=== PATIENT | male | born 1945 | race Caucasian/White ===

== ENCOUNTER 2016-09-20 09:50 | Inpatient (IN) | payer MEDICARE, BC, OTHER ==
[2016-09-20] VITALS (51 sets, daily range): BP systolic 68–199; BP diastolic 35–82; PULSE 76–114; RESP 4–40; TEMP 97.8–99.3; O2SAT 88–99
[~2016-09-20] VITALS: Ht 162.6 cm; Wt 94.8 kg
[2016-09-20] MEDS ORDERED: ACTO15TA11 PO (10:09)
[2016-09-20] MEDS ORDERED: VYTO10TA27 PO (10:09)
[2016-09-20] MEDS ORDERED: GLYB5TAB3 PO (10:09)
[2016-09-20] MEDS ORDERED: [UNRECOGNIZED DRUG - REMARK] (10:09)
[2016-09-20] MEDS ORDERED: SODIUM CHLORIDE 0.9% FLUSH 5 ML FLUSH IVF PRN (10:15)
--- NOTE | 2016-09-20 10:15 | PD ---
HPI Chief Complaint: Chest Pain Time Seen by Provider: 09:54 Travel History International Travel<30 days: No (unknown) Contact w/Intl Traveler<30days: No (unknown) History of Present Illness HPI 70yo M with PMH of IDDM presents to the ED with c/o sob and productive cough for 2 days. Pt had tactile fever at home. Associated with right sided chest pain for 2 days that is constant, dull, nonradiating and better sitting up. 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 Had nonbloody loose stool since last night. Denies any cig smoking or history of COPD. Pt does not use oxygen at home. Denies any history of PE, DVT, n/v, abdominal pain , focal weakness or numbness. PFSH Past Medical History Diabetes: Yes Patient Takes Glucophage: No Musculoskeletal: Yes (BACK PAIN CHRONIC) Tetanus Vaccination: Unknown Influenza Vaccination: Yes Social History Alcohol Use: No Tobacco Use: No Substance Use: No Allergies-Medications (Allergen,Severity, Reaction): Coded Allergies: No Known Allergies (Unverified , 09/20/16) Reported Meds & Prescriptions Reported Meds & Active Scripts Active Reported Levemir Flextouch Pen Inj (Insulin Detemir) 300 unit/3 ML Pen 1 Units SQ DIRECTED Vytorin (Ezetimibe-Simvastatin) 10-40 Mg Tab 1 Tab PO HS Januvia (Sitagliptin Phosphate) 100 Mg Tab 100 Mg PO DAILY Glimepiride 4 Mg Tab 4 Mg PO BIDAC Ramipril 10 Mg Cap 10 Mg PO DAILY [Tiolitazone] 15 Mg PO DAILY Ferrous Sulfate 325 Mg Tab 325 Mg PO DAILY Review of Systems Except as stated in HPI: all other systems reviewed are Neg Physical Exam Narrative GENERAL: 70yo M in moderate distress. SKIN: Warm and dry. HEAD: Atraumatic. Normocephalic. EYES: Pupils equal and round. No scleral icterus. No injection or drainage. ENT: No nasal bleeding or discharge. Mucous membranes pink and moist. NECK: Trachea midline. No JVD. CARDIOVASCULAR: Regular rate and rhythm. No murmur appreciated. RESPIRATORY: + accessory muscle use. Coarse breath sounds bilaterally. GASTROINTESTINAL: Abdomen soft, Nontender to palpation. No rebound tenderness or guarding. MUSCULOSKELETAL: No obvious deformities. No clubbing. No cyanosis. +Trace bilateral lower extremity edema. No calf ttp. NEUROLOGICAL: Awake and alert. No obvious cranial nerve deficits. Motor grossly within normal limits. Normal speech. PSYCHIATRIC: Appropriate mood and affect; insight and judgment normal. Data Data Last Documented VS Vital Signs Date Time Temp Pulse Resp B/P Pulse Ox O2 Delivery O2 Flow Rate FiO2 09/20/16 12:00 94 40 09/20/16 11:58 101 30 127/67 Nasal Cannula 4 09/20/16 10:10 97.8 Orders Complete Blood Count With Diff (09/20/16 10:05) Basic Metabolic Panel (Bmp) (09/20/16 10:05) B-Type Natriuretic Peptide (09/20/16 10:05) Act Partial Throm Time (Ptt) (09/20/16 10:05) Prothrombin Time / Inr (Pt) (09/20/16 10:05) Magnesium (Mg) (09/20/16 10:05) Ckmb (Isoenzyme) Profile (09/20/16 10:05) Troponin I (09/20/16 10:05) Arterial Blood Gas (Abg) (09/20/16 10:05) Influenzae A/B Antigen (09/20/16 10:05) Blood Culture (09/20/16 10:05) Iv Access Insert/Monitor (09/20/16 10:05) Ecg Monitoring (09/20/16 10:05) Oximetry (09/20/16 10:05) Oxygen Administration (09/20/16 10:05) Chest, Single Ap (09/20/16 10:05) Sodium Chloride 0.9% Flush (Ns Flush) (09/20/16 10:15) Lactic Acid Sepsis Protocol (09/20/16 10:05) CKMB (09/20/16 09:55) CKMB% (09/20/16 09:55) Sodium Chlor 0.9% 1000 Ml Inj (Ns 1000 M (09/20/16 11:00) Sodium Chlor 0.9% 1000 Ml Inj (Ns 1000 M (09/20/16 11:00) Ceftriaxone Inj (Rocephin Inj) (09/20/16 11:00) Azithromycin Inj (Zithromax Inj) (09/20/16 11:00) Sodium Chlor 0.9% 1000 Ml Inj (Ns 1000 M (09/20/16 11:00) Resp Bipap / Cpap Non Invas Vt (09/20/16 11:31) (Hub Use Only)Inp Phy Cons/Ref (09/20/16 ) Admit Order (Ed Use Only) (09/20/16 11:52) Labs Laboratory Tests Test 09/20/16 09/20/16 09/20/16 09:55 10:15 10:28 White Blood Count 8.6 TH/MM3 Red Blood Count 3.72 MIL/MM3 Hemoglobin 12.0 GM/DL Hematocrit 36.1 % Mean Corpuscular Volume 97.1 FL Mean Corpuscular Hemoglobin 32.2 PG Mean Corpuscular Hemoglobin 33.1 % Concent Red Cell Distribution Width 13.4 % Platelet Count 91 TH/MM3 Mean Platelet Volume 9.6 FL Neutrophils (%) (Auto) % Lymphocytes (%) (Auto) % Monocytes (%) (Auto) % Eosinophils (%) (Auto) % Basophils (%) (Auto) % Neutrophils # (Auto) TH/MM3 Lymphocytes # (Auto) TH/MM3 Monocytes # (Auto) TH/MM3 Eosinophils # (Auto) TH/MM3 Basophils # (Auto) TH/MM3 CBC Comment AUTO DIFF Differential Total Cells 100 Counted Neutrophils % (Manual) 39 % Band Neutrophils % 27 % Lymphocytes % 6 % Monocytes % 21 % Neutrophils # (Manual) 6.3 TH/MM3 Metamyelocytes 6 % Myelocytes 1 % Differential Comment FINAL DIFF MANUAL Dohle Bodies PRESENT Platelet Estimate LOW Platelet Morphology Comment NORMAL Red Cell Morphology Comment NORMAL Prothrombin Time 15.1 SEC Prothromb Time International 1.3 RATIO Ratio Activated Partial 35.7 SEC Thromboplast Time Sodium Level 143 MEQ/L Potassium Level 3.8 MEQ/L Chloride Level 104 MEQ/L Carbon Dioxide Level 22.0 MEQ/L Anion Gap 17 MEQ/L Blood Urea Nitrogen 52 MG/DL Creatinine 2.90 MG/DL Estimat Glomerular Filtration 21 ML/MIN Rate Random Glucose 153 MG/DL Calcium Level 8.8 MG/DL Magnesium Level 2.1 MG/DL Total Creatine Kinase 2385 U/L Creatine Kinase MB 4.5 NG/ML Creatine Kinase MB % 0.2 % Troponin I 0.11 NG/ML B-Type Natriuretic Peptide 187 PG/ML Lactic Acid Level 5.4 mmol/L Blood Gas Puncture Site LT RADIAL Blood Gas Patient Temperature 98.6 Blood Gas HCO3 21 mmol/L Blood Gas Base Excess -3.2 mmol/L Blood Gas Oxygen Saturation 85 % Arterial Blood pH 7.40 Arterial Blood Partial 34 mmHG Pressure CO2 Arterial Blood Partial 56 mmHG Pressure O2 Arterial Blood Oxygen Content 13.9 Vol % Arterial Blood 2.1 % Carboxyhemoglobin Arterial Blood Methemoglobin 1.1 % Blood Gas Hemoglobin 11.6 G/DL Oxygen Delivery Device NONE Blood Gas Inspired Oxygen 21 % MDM Medical Decision Making Medical Screen Exam Complete: Yes Emergency Medical Condition: Yes Interpretation(s) EKG: Sinus tachycardia at 100bpm. LAD. No ST segment elevation or depression. Differential Diagnosis Pneumonia vs. Bronchitis vs. Influenza vs. CHF vs. COPD (although not a smoker and no history) vs. ACS vs. PE Narrative Course 70yo M with sob, productive cough and right sided pleuritic chest pain for 2 days. Pt is hypoxic at 88% on RA and goes up to 94% on 4L NC. Will obtain labs , CXR, and reevaluate. Pt states he uses CPAP at home for sleep apnea so place pt on BIPAP and will continue to evaluate. Pt is doing better on BIPAP, saturating at 94-95%. Pt is still tachypneic breathing in the 30s. Pt is afebrile here but heart rate is 99bpm. Labs reviewed, no leukocytosis but with bandemia of 27%. Lactic acid is 5.4. CPK is 2385. Creatinine is 2.90 so pt likely have VICKI secondary to severe sepsis. Elevated troponin of 0.11 likely secondary to severe sepsis. BNP 187. Glucose is 153. O2 sat 85% on RA on ABG. CXR showed consolidative opacity in the right midlung most characteristic of pneumonia. Milder streaky opacity in the left perihilar region and left lung base. Pt given IVF NS x3 and ceftriaxone and azithromycin. Pt has not been hospitalized in last 3 months. Pt is doing better on BIPAP and will repeat ABG and continue to monitor. Discussed with Dr. Washington (ICU attending) who would like patient to be admitted to ICU in [place]. He also recommended CT chest without contrast to evaluate the infiltrate better. CT chest shows large areas of consolidation in both lungs. Repeat ABG on BIPAP shows improved O2 sat at 90%, will increase Fi O2 from 40% to 50%. PCO2 is 35 still. Pt is saturating at 95% on BIPAP. I informed pt of the results and pt currently does not want to be intubated and wants to try BIPAP first. I suggested preventively intubating the patient but pt is adamant about not being intubated until absolutely necessary. Pt has good mental status and states he is not getting tired from breathing. Pt is clinically improved on BIPAP. I informed both pt and daughter that if he starts to get tire or if PCO2 increases, then we will have to intubate him. They are aware of this and agrees to intubation if it is absolutely necessary. I also informed the next ED physician of this. Critical Care Narrative Aggregate critical care time was 50 minutes. Time to perform other separately billable procedures was not included in the critical care time. My time did not include minutes spent treating any other patients simultaneously or on activities that did not directly contribute to the patient's treatment. The services I provided to this patient were to treat and/or prevent clinically significant deterioration that could result in: cardiovascular collapse or . I provided critical care services requiring my management, as noted below: Chart data review, documentation time, medication orders and management, vital sign assessments/reviewing monitor data, ordering and reviewing lab tests, ordering and interpreting/reviewing x-rays and diagnostic studies, care of the patient and discussion of the patient with the admitting physicians. Sepsis Criteria SIRS Criteria (2 or more): Heart rate over 90, RR > 20 or PaCO2 < 32, WBC > 11131, < 4000 or > 10% bands Sepsis Criteria (SIRS+source): Infect source susp/known Severe Sepsis (+one): Lactate >2, Acute Oliguria/Renal Failure Septic Shock Criteria: Lactic acid >=4 Diagnosis Primary Impression: Severe sepsis Admitting Information Admitting Physician Requests: Afshan Jorge DO Sep 20, 2016 10:15
[2016-09-20 10:21] LABS: HEMATOCRIT 36.1 % (39.0-51.0); MEAN CELL VOLUME 97.1 FL (80.0-100.0); MEAN CORPUSCULAR HEMOGLOBIN 32.2 PG (27.0-34.0); MEAN CORPUSCULAR HGB CONC 33.1 % (32.0-36.0); PLATELET COUNT 91 TH/MM3 (150-450); RED BLOOD COUNT 3.72 MIL/MM3 (4.50-5.90); RED CELL DISTRIBUTION WIDTH 13.4 % (11.6-17.2); WHITE BLOOD COUNT 8.6 TH/MM3 (4.0-11.0)
[2016-09-20 10:26] LABS: HEMO FLAGS AUTO DIFF
[2016-09-20 10:27] LABS: POTASSIUM 3.8 MEQ/L (3.5-5.1)
[2016-09-20 10:30] LABS: MAGNESIUM 2.1 MG/DL (1.5-2.5)
[2016-09-20 10:31] LABS: APTT (PATIENT) 35.7 SEC (24.3-30.1); INTERNATIONAL NORMALIZED RATIO 1.3 RATIO; PROTHROMBIN TIME - PATIENT 15.1 SEC (9.8-11.6)
[2016-09-20 10:36] LABS: BLOOD GAS BASE EXCESS -3.2 mmol/L (-2-2); BLOOD GAS CARBOXYHEMOGLOBIN 2.1 % (0-4); BLOOD GAS HCO3 21 mmol/L (22-26); BLOOD GAS METHEMOGLOBIN 1.1 % (0-2); BLOOD GAS O2 HGB SATURATION 85 % (90-100); BLOOD GAS OXYGEN CONTENT 13.9 Vol % (12.0-20.0); BLOOD GAS PCO2 34 mmHG (38-42); BLOOD GAS PO2 56 mmHG (61-120); BLOOD GAS TOTAL HGB 11.6 G/DL (12.0-16.0); TEMP CORR TO 98.6
[2016-09-20 10:37] LABS: CRITICAL VALUE YES; DRAW SITE LT RADIAL; FIO2 21 %; NUMBER OF ARTERIAL PUNCTURES 1; STAT YES; ULNAR PULSE PRESENT
[2016-09-20 10:45] LABS: BANDS 27 % (0-6); DOHLE BODIES PRESENT (NONE SEEN); METAMYELOCYTES 6 % (0-1); MYELOCYTES 1 % (0-0); NEUTROPHIL # MANUAL DIFF 6.3 TH/MM3 (1.8-7.7); PLATELET ESTIMATE SMEAR LOW (NORMAL); PLATELET MORPHOLOGY NORMAL (NORMAL); POLYS (SEG NEUTROPHILS) 39 % (16-70); SCAN/DIFF FINAL DIFF MANUAL; WBC DIFF SAMPLE 100
--- NOTE | 2016-09-20 10:49 | RADHPO ---
EXAM DATE/TIME: 09/20/2016 10:14 [facility] COMPARISON: No previous studies available for comparison. INDICATIONS : Chest Pain, Short of Breath. MEDICAL HISTORY : None. SURGICAL HISTORY : None. ENCOUNTER: Initial ACUITY: 2 days PAIN SCORE: 7/10 LOCATION: Bilateral chest FINDINGS: A single AP erect portable view of the chest was obtained and demonstrates consolidative opacity in t he right perihilar region extending out to the pleural surface. There is more streaky infiltrate in t he left perihilar region and left lung base. The heart size appears mildly prominent. There is no dis tinct effusion. Overlying electrical leads are present. The patient is status post lower cervical fus ion with screw-plate fixation device. A stimulator lead device is projected over the mid thoracic spi ne. CONCLUSION: 1. Consolidative opacity in the right midlung most characteristic of pneumonia. 2. Milder streaky opacity in the left perihilar region and left lung base. Osmel Chung MD on September 20, 2016 at 10:45 Board Certified Radiologist. This report was verified electronically.
[2016-09-20 11:00] LABS: CKMB 4.5 NG/ML (0.5-3.6)
[2016-09-20] MEDS ORDERED: AZITHROMYCIN INJ 500 MG in SODIUM CHLOR 0.9% 250 ML INJ 250 ML IV ONE (11:00)
[2016-09-20] MEDS ORDERED: cefTRIAXone INJ 1,000 MG in SODIUM CHLORIDE 0.9% INJ 100 ML IV ONE (11:00)
[2016-09-20] MEDS ORDERED: SODIUM CHLOR 0.9% 1000 ML INJ 1,000 ML IV ONE ×4 (11:00→19:00)
[2016-09-20] MEDS ORDERED: [UNRECOGNIZED DRUG - OTHER] PO (11:13)
[2016-09-20] MEDS ORDERED: VYTO10TA9 PO (11:13)
[2016-09-20] MEDS ORDERED: FERR325T PO (11:13)
[2016-09-20] MEDS ORDERED: GLIM4TAB PO (11:13)
[2016-09-20] MEDS ORDERED: SITA1TAB2 PO (11:13)
[2016-09-20] MEDS ORDERED: RAMI10CA PO (11:13)
[2016-09-20] MEDS ORDERED: INSU1INJ5 SQ (11:46)
[2016-09-20 12:23] LABS: LACTIC ACID GHOST NOT REPORTABLE
--- NOTE | 2016-09-20 12:34 | RADHPO ---
EXAM DATE/TIME: 09/20/2016 12:18 [facility] COMPARISON: CHEST SINGLE AP, September 20, 2016, 10:14. INDICATIONS : Short of breath with right sided chest pain. RADIATION DOSE: 22.50 CTDIvol (mGy) MEDICAL HISTORY : diabetes SURGICAL HISTORY : None. ENCOUNTER: Initial ACUITY: 3 days PAIN SCALE: 6/10 LOCATION: Right chest TECHNIQUE: Volumetric scanning of the chest was performed. Using automated exposure control and adjustment of t he mA and/or kV according to patient size, radiation dose was kept as low as reasonably achievable to obtain optimal diagnostic quality images. FINDINGS: LUNGS: There is dense consolidation in the right upper lobe the perihilar region their bronchograms. There i s also dense consolidation in the posterior left lower lobe and left upper lobe. PLEURAE: There is no pleural thickening or pleural effusion. MEDIASTINUM: The heart and great vessels demonstrate no acute abnormality. There is no mediastinal or hilar lymph adenopathy. The heart size is mildly enlarged with no pericardial effusion. An aberrant right subclav mayco artery is noted. AXILLAE: Within normal limits. No lymphadenopathy. MUSCULOSKELETAL: Within normal limits for patient age. MISCELLANEOUS: The visualized upper abdominal organs demonstrate no acute abnormality. A stimulator lead is noted in the thecal sac of the thoracic spine. CONCLUSION: 1. Large areas of dense consolidation most characteristic of pneumonia. 2. Mild cardiomegaly. Osmel Chung MD on September 20, 2016 at 12:30 Board Certified Radiologist. This report was verified electronically.
[2016-09-20] MEDS ORDERED: SODIUM CHLORIDE 0.9% FLUSH 5 ML FLUSH IV FLUSH PRN (12:45)
[2016-09-20] MEDS ORDERED: GLUCAGON 1 MG/ML VIAL OTHER PRN (12:45)
[2016-09-20] MEDS ORDERED: MAGNESIUM HYDROXIDE SUSP 30 ML CUP PO PRN (12:45)
[2016-09-20] MEDS ORDERED: POTASSIUM PHOSPHATE MONOBASIC 500 MG TAB PO/TUBE PRN (12:45)
[2016-09-20] MEDS ORDERED: MAGNESIUM OXIDE 400 MG TAB PO PRN (12:45)
[2016-09-20] MEDS ORDERED: MAGNESIUM SULFATE INJ 4 GM in SODIUM CHLORIDE 0.9% INJ 92 ML IV PRN (12:45)
[2016-09-20] MEDS ORDERED: POTASSIUM PHOSPHATE INJ 30 MMOL in SODIUM CHLOR 0.9% 250 ML INJ 250 ML IV PRN (12:45)
[2016-09-20] MEDS ORDERED: SODIUM PHOSPHATE INJ 30 MMOL in SODIUM CHLOR 0.9% 250 ML INJ 240 ML IV PRN (12:45)
[2016-09-20] MEDS ORDERED: MISCELLANEOUS NURSING INFORMATION XX SCH (12:45)
[2016-09-20] MEDS ORDERED: MAGNESIUM SULFATE INJ 2 GM in SODIUM CHLORIDE 0.9% INJ 96 ML IV PRN (12:45)
[2016-09-20] MEDS ORDERED: ACETAMINOPHEN 325 MG TAB PO PRN (12:45)
[2016-09-20] MEDS ORDERED: POTASSIUM PHOSPHATE MONOBASIC 500 MG TAB PO PRN (12:45)
[2016-09-20] MEDS ORDERED: DEXTROSE 50% IN WATER 50 ML VIAL(D50) IV PUSH PRN (12:45)
[2016-09-20] MEDS ORDERED: CHLORHEXIDINE GLUCONATE 2 % 1 PACK (2 CLOTHS) TOP PRN (12:45)
[2016-09-20] MEDS ORDERED: POTASSIUM CL 40 MEQ/30 ML LIQ UDC PO/TUBE PRN ×2 (12:45)
[2016-09-20] MEDS ORDERED: POTASSIUM CHLOR 40 MEQ PREMIX 100 ML IV PRN ×2 (12:45)
[2016-09-20] MEDS ORDERED: ONDANSETRON HCL 4 MG/2 ML VIAL IV PRN (12:45)
[2016-09-20] MEDS ORDERED: POTASSIUM CHLOR 20 MEQ PREMIX 100 ML IV PRN ×2 (12:45)
[2016-09-20] MEDS ORDERED: HEPARIN SODIUM - SQ 10,000 UNITS/ML VIAL SQ SCH (13:00)
[2016-09-20] MEDS ORDERED: PIPERACIL-TAZO 3.375 GM PREMIX 50 ML IV SCH (13:00)
[2016-09-20 13:30] LABS: BLOOD GAS CARBOXYHEMOGLOBIN 1.8 % (0-4); BLOOD GAS HCO3 19 mmol/L (22-26); BLOOD GAS METHEMOGLOBIN 1.1 % (0-2); BLOOD GAS O2 HGB SATURATION 90 % (90-100); BLOOD GAS OXYGEN CONTENT 14.4 Vol % (12.0-20.0); BLOOD GAS PCO2 35 mmHG (38-42); BLOOD GAS PO2 67 mmHG (61-120); BLOOD GAS TOTAL HGB 11.4 G/DL (12.0-16.0); CRITICAL VALUE NO; OXYGEN DEVICE BIPAP; TEMP CORR TO 98.6; VENT SETTINGS EPAP 5/IPAP15
[2016-09-20 13:31] LABS: DRAW SITE LT RADIAL; FIO2 40 %; NUMBER OF ARTERIAL PUNCTURES 1; STAT NO; ULNAR PULSE PRESENT
[2016-09-20 13:41] LABS: CHLORIDE 108 MEQ/L (98-107); POTASSIUM 3.9 MEQ/L (3.5-5.1); SODIUM (NA) 145 MEQ/L (136-145)
[2016-09-20 13:52] LABS: ALKALINE PHOSPHATASE 27 U/L (45-117); ALT (GPT) 45 U/L (12-78); ANION GAP 14 MEQ/L (5-15); AST (GOT) 93 U/L (15-37); BICARBONATE 23.3 MEQ/L (21.0-32.0); BLOOD UREA NITROGEN 52 MG/DL (7-18); GLOMERULAR FILTRATION RATE 26 ML/MIN (>89); TOTAL BILIRUBIN ADULT 1.2 MG/DL (0.2-1.0)
[2016-09-20] MEDS: RESP: ALBUTEROL 2.5 MG/IPRATROPIUM 0.5 MG NEB (SCH) INH ×3 (15:32→23:06)
[2016-09-20] MEDS ORDERED: ALPRAZolam 0.25 MG TAB PO PRN (15:45)
--- NOTE | 2016-09-20 16:21 | HHI.HP ---
[facility] Service Critical Care Medicine Primary Care Physician Non-Staff Admission Diagnosis Severe sepsis secondary to bilateral pneumonia Diagnosis: (1) Sepsis with multi-organ dysfunction Diagnosis: Principal (2) Septic shock Diagnosis: Principal (3) Adult respiratory distress syndrome Diagnosis: Principal (4) Acute respiratory failure with hypoxia Diagnosis: Principal (5) Bilateral pneumonia Diagnosis: Principal (6) Hypotension Diagnosis: Principal (7) Lactic acid acidosis Diagnosis: Principal (8) Non-ST elevated myocardial infarction Diagnosis: Principal (9) Elevated CPK Diagnosis: Principal (10) Troponin level elevated Diagnosis: Principal (11) Acute renal failure Diagnosis: Principal (12) Diabetes Diagnosis: Secondary (13) Hyperlipidemia Diagnosis: Secondary Chief Complaint: Shortness of breath and dyspnea Travel History International Travel<30 Days: No Contact w/Intl Traveler <30 Da: No Traveled to Known Affected Are: No Sepsis Criteria SIRS Criteria (2 or more): Heart rate over 90, RR > 20 or PaCO2 < 32 Sepsis Criteria (SIRS+source): Infect source susp/known Severe Sepsis (+one): Hypotension, Lactate >2 Septic Shock Criteria: Lactic acid >=4 Multiple Organ Dysfunction Syn: Evidence -2 organs failing Criteria Outcome: Meets septic shock criteria, Meets multiple organ dys. criteria History of Present Illness 70 year-old male with known history of hypertension, hyperlipidemia, diabetes who presented to the emergency department because of shortness of breath and dyspnea. Patient has had a rather plethora symptoms that started back starting last . At that time the patient did have some fever, chills and did not feel well. They're planning on coming down from [place]. Him and his did get in the car and drive down here from [place] on Wednesday morning. Wednesday afternoon and evening the patient did not feel well again. He had some diaphoresis, nausea and vomiting Wednesday night. They proceeded to continue to drive to [place] and they got here yesterday. Patient was still not feeling well. Had fever, cough, chills. This morning patient had significant shortness of breath, dyspnea, lethargy so they came to the hospital for evaluation. Upon presentation appears if the patient was in severe septic shock with multiorgan dysfunction in the emergency department patient was given 2 L of fluid bolus to maintain blood pressure. He does have respiratory failure with significant hypoxia. Patient was advanced on oxygenation to now he is on BiPAP for respiratory support. It was indicated by the ER physician that they recommended him to be intubated, however he preferred not to be intubated at that time. Laboratory studies to indicate significant lactic acid acidosis, acute renal failure, severe bandemia, elevated cardiac enzymes. ER physician did contact critical care physician recommended admission. ER physician to pursue a CT scan after she obtained admission status. It does show significant pneumonia bilaterally. Mainly right middle lobe. It appears to be very dense consolidation. Upon evaluating the patient personally, patient is still rather tachypneic and respiratory rate 35-40. Tidal volume on BiPAP was anywhere from 300-450. I notify him of how sick he is. That he would probably benefit from oral intubation. Patient is open to it at this time to be proactive rather than reactive. Review of Systems Constitutional: COMPLAINS OF: Dizziness, DENIES: Diaphoretic episodes, Fatigue , Fever, Weight gain, Weight loss, Chills, Change in appetite, Night Sweats Eyes: DENIES: Blurred vision, Diplopia, Eye inflammation, Eye pain, Vision loss , Double Vision Ears, nose, mouth, throat: DENIES: Vertigo, Nasal discharge, Throat pain, Ear Pain, Running Nose, Sinus Pain Respiratory: COMPLAINS OF: Shortness of breath, DENIES: Apneas, Cough, Snoring , Wheezing, Hemoptysis, Sputum production Cardiovascular: DENIES: Chest pain, Palpitations, Syncope, Dyspnea on Exertion , Lower Extremity Edema, Orthopnea Gastrointestinal: COMPLAINS OF: Nausea, Vomiting, DENIES: Abdominal pain, Black stools, Bloody stools, Constipation, Diarrhea, Difficulty Swallowing, Anorexia Neurologic: DENIES: Abnormal gait, Headache, Localized weakness, Paresthesias, Seizures, Speech Problems, Tremor, Poor Balance Psychiatric: DENIES: Anxiety, Confusion, Mood changes Past Family Social History Allergies: Coded Allergies: No Known Allergies (Unverified , 09/20/16) Past Medical History Hypertension Hyperlipidemia Chronic back pain Diabetes Past Surgical History Pain stimulator implantation Reported Medications Reported Meds & Active Scripts Active Reported Levemir Flextouch Pen Inj (Insulin Detemir) 300 unit/3 ML Pen 1 Units SQ DIRECTED Vytorin (Ezetimibe-Simvastatin) 10-40 Mg Tab 1 Tab PO HS Januvia (Sitagliptin Phosphate) 100 Mg Tab 100 Mg PO DAILY Glimepiride 4 Mg Tab 4 Mg PO BIDAC Ramipril 10 Mg Cap 10 Mg PO DAILY [Tiolitazone] 15 Mg PO DAILY Ferrous Sulfate 325 Mg Tab 325 Mg PO DAILY Family History Reviewed and unremarkable Social History Patient denies any tobacco, alcohol or illicit drugs Physical Exam Vital Signs Vital Signs Date Time Temp Pulse Resp B/P Pulse Ox O2 Delivery O2 Flow Rate FiO2 09/20/16 13:58 94 136/55 95 BiPAP 09/20/16 13:39 95 55 09/20/16 13:31 97 32 117/54 93 BiPAP 40 09/20/16 12:59 BiPAP 40 09/20/16 12:59 92 25 110/58 93 BiPAP 40 09/20/16 12:11 96 32 127/67 95 BiPAP 40 09/20/16 12:00 94 40 09/20/16 11:58 101 30 127/67 91 Nasal Cannula 4 09/20/16 11:44 93 Nasal Cannula 4 09/20/16 11:44 94 30 93 Nasal Cannula 4 09/20/16 11:43 93 Nasal Cannula 4.00 09/20/16 11:17 89 27 106/56 95 BiPAP 40 09/20/16 11:17 95 BiPAP 40 09/20/16 10:52 94 38 90/44 92 BiPAP 40 09/20/16 10:45 95 40 09/20/16 10:10 97.8 99 37 102/55 93 Nasal Cannula 3 09/20/16 10:07 93 Nasal Cannula 3 09/20/16 10:07 93 Nasal Cannula 3 09/20/16 10:00 97.8 99 40 102/55 88 Room Air 09/20/16 10:00 91 Nasal Cannula 2 Physical Exam GENERAL: Well-developed, well-nourished, in respiratory distress. alert and orientated HEENT: Head is normocephalic without any lesions or masses noted. Facial features are symmetric. Eyes: Pupils equal round reactive to light. Extraocular muscles are intact. Conjunctivae were clear. Patient has BiPAP mask NECK: Supple without any masses. Trachea midline no deviation. No JVD, no bruits are appreciated CARDIAC: Regular rhythm, regular rate. S1/S2 are heard. No murmurs gallops or rubs. LUNGS: Diminished breath sounds noted throughout, patient does have significant rhonchi and wheeze noted throughout bilateral lungs. No rales. No use of accessory muscles on inspiration or expiration. ABDOMEN: Soft, nontender. Nondistended. Bowel sounds heard in all 4 quadrants. No organomegaly or masses. Negative rebound, negative guarding EXTREMITIES: No edema, pulses are equal bilaterally. No cyanosis or clubbing NEUROLOGY: Mood and affect appear appropriate. Cranial nerves II through XII grossly intact. Muscle strength 5/5 in upper and lower extremities bilaterally. Deep tendon reflexes are 2+ in upper and lower extremities bilaterally. Laboratory Laboratory Tests Test 09/20/16 09/20/16 09/20/16 09/20/16 09:55 10:15 10:28 12:55 White Blood Count 8.6 Red Blood Count 3.72 Hemoglobin 12.0 Hematocrit 36.1 Mean Corpuscular Volume 97.1 Mean Corpuscular Hemoglobin 32.2 Mean Corpuscular Hemoglobin 33.1 Concent Red Cell Distribution Width 13.4 Platelet Count 91 Mean Platelet Volume 9.6 Neutrophils (%) (Auto) Lymphocytes (%) (Auto) Monocytes (%) (Auto) Eosinophils (%) (Auto) Basophils (%) (Auto) Neutrophils # (Auto) Lymphocytes # (Auto) Monocytes # (Auto) Eosinophils # (Auto) Basophils # (Auto) CBC Comment AUTO DIFF Differential Total Cells 100 Counted Neutrophils % (Manual) 39 Band Neutrophils % 27 Lymphocytes % 6 Monocytes % 21 Neutrophils # (Manual) 6.3 Metamyelocytes 6 Myelocytes 1 Differential Comment FINAL DIFF MANUAL Dohle Bodies PRESENT Platelet Estimate LOW Platelet Morphology Comment NORMAL Red Cell Morphology Comment NORMAL Prothrombin Time 15.1 Prothromb Time International 1.3 Ratio Activated Partial 35.7 Thromboplast Time Sodium Level 143 Potassium Level 3.8 Chloride Level 104 Carbon Dioxide Level 22.0 Anion Gap 17 Blood Urea Nitrogen 52 Creatinine 2.90 Estimat Glomerular Filtration 21 Rate Random Glucose 153 Calcium Level 8.8 Magnesium Level 2.1 Total Creatine Kinase 2385 Creatine Kinase MB 4.5 Creatine Kinase MB % 0.2 Troponin I 0.11 B-Type Natriuretic Peptide 187 Lactic Acid Level 5.4 4.8 Blood Gas Puncture Site LT RADIAL Blood Gas Patient Temperature 98.6 Blood Gas HCO3 21 Blood Gas Base Excess -3.2 Blood Gas Oxygen Saturation 85 Arterial Blood pH 7.40 Arterial Blood Partial 34 Pressure CO2 Arterial Blood Partial 56 Pressure O2 Arterial Blood Oxygen Content 13.9 Arterial Blood 2.1 Carboxyhemoglobin Arterial Blood Methemoglobin 1.1 Blood Gas Hemoglobin 11.6 Oxygen Delivery Device NONE Blood Gas Inspired Oxygen 21 Test 09/20/16 09/20/16 13:24 13:30 Blood Gas Puncture Site LT RADIAL Blood Gas Patient Temperature 98.6 Blood Gas HCO3 19 Blood Gas Base Excess -5.0 Blood Gas Oxygen Saturation 90 Arterial Blood pH 7.36 Arterial Blood Partial 35 Pressure CO2 Arterial Blood Partial 67 Pressure O2 Arterial Blood Oxygen Content 14.4 Arterial Blood 1.8 Carboxyhemoglobin Arterial Blood Methemoglobin 1.1 Blood Gas Hemoglobin 11.4 Oxygen Delivery Device BIPAP Blood Gas Ventilator Setting EPAP 5/IPAP15 Blood Gas Inspired Oxygen 40 Sodium Level 145 Potassium Level 3.9 Chloride Level 108 Carbon Dioxide Level 23.3 Anion Gap 14 Blood Urea Nitrogen 52 Creatinine 2.50 Estimat Glomerular Filtration 26 Rate Random Glucose 209 Calcium Level 7.5 Total Bilirubin 1.2 Aspartate Amino Transf 93 (AST/SGOT) Alanine Aminotransferase 45 (ALT/SGPT) Alkaline Phosphatase 27 Total Protein 6.3 Albumin 2.5 Date/Time Procedure Status Source Growth 09/20/16 10:15 Influenza Types A,B Antigen (NILA) - Final Complete Nasal Aspirate NEGATIVE FOR FLU A AND B ANTIGEN.... 09/20/16 10:08 Aerobic Blood Culture Received Blood Peripheral Pending 09/20/16 10:08 Anaerobic Blood Culture Received Blood Peripheral Pending Result Diagram: 09/20/16 0955 09/20/16 1330 Imaging Last Impressions Chest X-Ray 09/20/16 1005 Signed Impressions: Service Date/Time: Tuesday, September 20, 2016 10:14 - CONCLUSION: 1. Consolidative opacity in the right midlung most characteristic of pneumonia. 2. Milder streaky opacity in the left perihilar region and left lung base. Osmel Chung MD Chest CT 09/20/16 0000 Signed Impressions: Service Date/Time: Tuesday, September 20, 2016 12:18 - CONCLUSION: 1. Large areas of dense consolidation most characteristic of pneumonia. 2. Mild cardiomegaly. Osmel Chung MD Septic Shock Reassessment Heart: Irregular Lungs: Course, Diminished, Other (rhonchi) Skin: Cold, Moist Peripheral Pulses: Bounding Right Radial Bounding Left Radial Capillary Refill: Brisk, <2 seconds Assessment and Plan Problem List: (1) Sepsis with multi-organ dysfunction ICD Code: A41.9 Status: Acute (2) Septic shock ICD Code: A41.9 Status: Acute (3) Adult respiratory distress syndrome ICD Code: J80 Status: Acute (4) Acute respiratory failure with hypoxia ICD Code: J96.01 Status: Acute (5) Bilateral pneumonia ICD Code: J18.9 Status: Acute (6) Lactic acid acidosis ICD Code: E87.2 Status: Acute (7) Non-ST elevated myocardial infarction ICD Code: I21.4 Status: Acute (8) Elevated CPK ICD Code: R74.8 Status: Acute (9) Troponin level elevated ICD Code: R79.89 Status: Acute (10) Acute renal failure ICD Code: N17.9 Status: Acute (11) Diabetes ICD Code: E11.9 Status: Acute Assessment and Plan NEUROLOGY Mildly anxious from a clinical condition Xanax as needed Continue monitor neurological function, if patient starts having mental deterioration will likely need to be intubated PULMONOLOGY Acute hypoxic respiratory failure Adult respiratory distress syndrome Bilateral pneumonia Cannot rule out pulmonary emboli Patient currently on BiPAP 15/5/60% to maintain O2 sats greater than 92% Duo nebs every 4 hours and every 2 hours as needed If patient respiratory status worsens, patient will need to be intubated, ER doctor was made aware Obtain sputum culture CARDIOLOGY Septic shock Elevated CPK Elevated troponin Non-ST elevated myocardial infarction Hyperlipidemia Status post 2 L normal saline bolus, with improvement of blood pressure Continue to trend cardiac enzymes and EKGs Obtain stat echocardiogram to evaluate for cardiac function. Possibility of pulmonary emboli and need to evaluate right ventricular function for possible TPA Start aspirin Unable to use beta donna, nitroglycerin due to hypotension Obtain lipid panel Start therapeutic Lovenox, for NSTEMI and because patient high risk for PE due to recent car travel, presenting symptoms, unable to rule out out for pulmonary emboli due to renal function and respiratory status. GASTROINTESTINAL Diabetic diet Protonix for GI protection RENAL Acute renal failure, unknown chronicity Would like to continue IV fluids, however with worsening respiratory status will hold at this time start if patient is intubated and respiratory status improves Monitor renal function Avoid nephrotoxins Start ICU electrolyte placement protocol INFECTIOUS DISEASE Bilateral pneumonia, possible aspiration Septic shock Lactic acid acidosis Bandemia Patient started on empirical antibiotics to include Zosyn, Zithromax Continue to trend lactic acid level Influenza testing is negative Blood cultures are pending Obtain sputum culture Perform Legionella and strep pneumo antigen HEMATOLOGY Continue follow CBC --Check bilateral lower extremity venous doppler to eval for DVT ENDOCRINOLOGY Diabetes Accu-Cheks with sliding scale insulin Stress dose steroids: Solu-Medrol 60 mg every 6 hours Check TSH and cortisol levels PROPHYLAXIS DVT prevention with Lovenox GI protection with Protonix LINES Peripheral IVs CODE STATUS Full code Critical care time 75 minutes excluding procedures I have seen and examined a patient in the ICU. The patient was breathing at RR 40s looking tiered. I have reviewed CT immages with patient's daughter and explaioned to patient and her that the endotracheal intubation and mechanical ventilation is a necessary next step in treatment. They both understood and agreed. I agree with a assessment and plan above. Problem Qualifiers (1) Bilateral pneumonia: Qualified Code: J18.9 - Pneumonia of both lungs due to infectious organism, unspecified part of lung (2) Hypotension: Qualified Code: I95.9 - Hypotension, unspecified hypotension type (3) Acute renal failure: Qualified Code: N17.9 - Acute renal failure, unspecified acute renal failure type (4) Diabetes: Qualified Code: E11.8 - Type 2 diabetes mellitus with complication, with long- term current use of insulin (5) Hyperlipidemia: Qualified Code: E78.5 - Hyperlipidemia, unspecified hyperlipidemia type [place] Sep 20, 2016 16:21 Timothy Putnam MD Sep 20, 2016 22:12
[2016-09-20] MEDS: ASPIRIN EC 325 MG TABEC PO SCH (16:30)
[2016-09-20] MEDS ORDERED: SUCCINYLCHOLINE CHLORIDE 200 MG/10 ML VIAL ONE (17:09)
[2016-09-20] MEDS ORDERED: PROPOFOL 500 MG/50 ML INJ 50 ML ONE (17:09)
[2016-09-20] MEDS ORDERED: PROPOFOL 1000 MG/100 ML INJ 100 ML IV SCH (17:15)
[2016-09-20] MEDS ORDERED: SUCCINYLCHOLINE CHLORIDE 200 MG/10 ML VIAL IV PUSH ONE (17:15)
[2016-09-20] MEDS ORDERED: LORazepam 2 MG/ML VIAL IV PRN ×2 (17:45)
[2016-09-20] MEDS ORDERED: fentaNYL DRIP 250 ML IV SCH ×2 (17:45→19:00)
[2016-09-20] MEDS ORDERED: MIDAZOLAM HCL 2 MG/2 ML VIAL IV PRN (17:45)
[2016-09-20] MEDS ORDERED: ENOXAPARIN SODIUM 40 MG/0.4 ML SYRINGE SQ SCH (18:00)
[2016-09-20] MEDS: SODIUM CHLOR 0.9% 1000 ML INJ 1,000 ML IV SCH (18:02)
[2016-09-20] MEDS: INSULIN ASPART SUPPLEMENTAL SCALE SQ SCH ×2 (18:21→21:02)
[2016-09-20] MEDS: methylPREDNISolone SOD SUCC 125 MG/2 ML VIAL IV SCH ×2 (18:22→23:53)
--- NOTE | 2016-09-20 18:24 | RADHPO ---
EXAM DATE/TIME: 09/20/2016 17:56 [facility] COMPARISON: CT THORAX W/O CONTRAST, September 20, 2016, 12:18. CHEST SINGLE AP, September 20, 2016, 10:14. INDICATIONS : Post intubation. MEDICAL HISTORY : None. SURGICAL HISTORY : None. ENCOUNTER: Subsequent ACUITY: 2 days PAIN SCORE: Non-responsive. LOCATION: Bilateral chest FINDINGS: There is dense consolidation in the right lung, however there is slight improvement in aeration since the prior study. ET tube is present with tip overlapping approximately 2 cm above the myah. The re st of the examination has not significantly changed. CONCLUSION: Slight improvement in the aeration of the right lung, however dense consolidation remains. Mariano Rodriguez MD on September 20, 2016 at 18:21 Board Certified Radiologist. This report was verified electronically.
[2016-09-20] MEDS ORDERED: NOREPINEPHRINE-DEXTROSE DRIP 250 ML IV SCH (19:00)
[2016-09-20] MEDS ORDERED: MIDAZOLAM HCL 2 MG/2 ML VIAL IV ONE (19:00)
[2016-09-20] MEDS ORDERED: TERBUTALINE INJ 1 MG/ML AMP SQ PRN (19:00)
[2016-09-20] MEDS: ALBUMIN HUMAN 5% 25 GM/500 ML BOTTLE IV SCH ×2 (19:11→23:53)
[2016-09-20] MEDS: PIPERACIL-TAZO 3.375 GM PREMIX 50 ML IV SCH (19:59)
[2016-09-20] MEDS ORDERED: MIDAZOLAM 100 MG/ML INJ 100 ML IV SCH (20:00)
[2016-09-20 20:32] LABS: BLOOD GAS BASE EXCESS -4.6 mmol/L (-2-2); BLOOD GAS CARBOXYHEMOGLOBIN 1.1 % (0-4); BLOOD GAS HCO3 20 mmol/L (22-26); BLOOD GAS METHEMOGLOBIN 0.6 % (0-2); BLOOD GAS O2 HGB SATURATION 92 % (90-100); BLOOD GAS OXYGEN CONTENT 13.3 Vol % (12.0-20.0); BLOOD GAS PCO2 34 mmHg (38-42); BLOOD GAS PO2 67 mmHg (61-120); BLOOD GAS TOTAL HGB 10.2 G/DL (12.0-16.0); CRITICAL VALUE NO; DRAW SITE RT RADIAL; FIO2 50 %; NUMBER OF ARTERIAL PUNCTURES 1; OXYGEN DEVICE VENTILATOR; ULNAR PULSE Y; VENT SETTINGS AC14/500/PEEP10
[2016-09-20 20:33] LABS: STAT NO
[2016-09-20] MEDS: VASOPRESSIN INJ 40 UNITS in DEXTROSE 5% IN WATER 100ML INJ 98 ML IV SCH ×2 (20:56)
[2016-09-20] MEDS: SODIUM CHLORIDE 0.9% FLUSH 5 ML FLUSH IV FLUSH SCH (20:57)
[2016-09-20 22:59] LABS: CKMB 3.5 NG/ML (0.5-3.6)
[2016-09-21] VITALS (62 sets, daily range): BP systolic 79–189; BP diastolic 40–90; PULSE 56–102; RESP 0–32; TEMP 97.9–98.9; O2SAT 90–98
[2016-09-21] MEDS: PIPERACIL-TAZO 3.375 GM PREMIX 50 ML IV SCH ×4 (02:22→19:46)
[2016-09-21] MEDS: SODIUM CHLOR 0.9% 1000 ML INJ 1,000 ML IV SCH ×2 (03:29→12:52)
[2016-09-21] MEDS: CHLORHEXIDINE GLUCONATE 2 % 1 PACK (2 CLOTHS) TOP SCH (03:29)
[2016-09-21] MEDS: RESP: ALBUTEROL 2.5 MG/IPRATROPIUM 0.5 MG NEB (SCH) INH ×6 (04:26→23:09)
[2016-09-21] MEDS: ALBUMIN HUMAN 5% 25 GM/500 ML BOTTLE IV SCH (05:17)
[2016-09-21] MEDS: methylPREDNISolone SOD SUCC 125 MG/2 ML VIAL IV SCH ×3 (05:17→18:00)
[2016-09-21] MEDS: INSULIN ASPART SUPPLEMENTAL SCALE SQ SCH ×4 (05:34→22:21)
[2016-09-21] MEDS: ENOXAPARIN SODIUM 60 MG/0.6 ML SYRINGE SQ SCH ×2 (05:34→18:00)
[2016-09-21 05:51] LABS: AUTOMATED NEUTROPHIL # 6.3 TH/MM3 (1.8-7.7); EOSINOPHIL % 0.7 % (0.0-4.0); HEMATOCRIT 29.1 % (39.0-51.0); LYMPH % 3.8 % (9.0-44.0); LYMPHOCYTE # 0.3 TH/MM3 (1.0-4.8); MEAN CORPUSCULAR HEMOGLOBIN 32.4 PG (27.0-34.0); MEAN CORPUSCULAR HGB CONC 33.1 % (32.0-36.0); MONO % 4.8 % (0.0-8.0); NEUT % 90.7 % (16.0-70.0); PLATELET COUNT 68 TH/MM3 (150-450); RED BLOOD COUNT 2.97 MIL/MM3 (4.50-5.90); RED CELL DISTRIBUTION WIDTH 13.2 % (11.6-17.2); WHITE BLOOD COUNT 6.9 TH/MM3 (4.0-11.0)
[2016-09-21 05:59] LABS: POTASSIUM 3.7 MEQ/L (3.5-5.1)
[2016-09-21 06:05] LABS: HEMO FLAGS AUTO DIFF
[2016-09-21 06:31] LABS: BICARBONATE 17.2 MEQ/L (21.0-32.0); MAGNESIUM 2.2 MG/DL (1.5-2.5)
[2016-09-21 06:48] LABS: CALCIUM-PROTEIN CORRECTED 7.6 MG/DL (8.5-10.1)
[2016-09-21 07:07] LABS: SCAN/DIFF AUTO DIFF CONFIRMED
[2016-09-21] MEDS: ASPIRIN EC 325 MG TABEC PO SCH (07:21)
[2016-09-21] MEDS: SODIUM CHLORIDE 0.9% FLUSH 5 ML FLUSH IV FLUSH SCH ×2 (07:21→21:00)
[2016-09-21] MEDS: PANTOPRAZOLE SOD 40 MG DELAYED RELEASE TAB PO SCH (07:21)
--- NOTE | 2016-09-21 07:39 | EKG ---
Date Performed: 09/20/2016 Time Performed: 22:29:12 PTAGE: 70 years EKG: Sinus rhythm . Poor R wave progression - probable normal variant Borderline ECG PREVIOUS TRACING : 09/20/2016 09.47 No significant change from previous tracing noted. DOCTOR: Kofi Lewis Interpretating Date/Time 09/21/2016 07:37:24
--- NOTE | 2016-09-21 08:08 | EKG ---
Date Performed: 09/20/2016 Time Performed: 09:47:02 PTAGE: 70 years EKG: Sinus tachycardia Poor R wave progression - probable normal variant Low QRS voltages in pre cordial leads Borderline ECG NO PREVIOUS TRACING DOCTOR: Kofi Lewis Interpretating Date/Time 09/21/2016 08:08:08
[2016-09-21 09:29] LABS: LACTIC ACID GHOST NOT REPORTABLE
--- NOTE | 2016-09-21 09:59 | EC ---
Study Study Date:09/21/2016 STUDY CONCLUSIONS SUMMARY - Left ventricle: The cavity size was normal. Wall thickness was at the upper limits of normal. Systolic function was normal. The estimated ejection fraction was in the range of 60% to 65%. Wall motion was normal; there were no regional wall motion abnormalities. - Mitral valve: Mild regurgitation. - Tricuspid valve: Mild regurgitation. If LV function is below 40, please consider prescribing an ACEI or ARB or document rationale for non-use. PROCEDURE DATA STUDY STATUS: Elective. Procedure: Transthoracic echocardiography. Image quality was good. Scanning was performed from the parasternal, apical, and subcostal acoustic windows. Study completion: The patient tolerated the procedure well. Transthoracic echocardiography. M-mode, complete 2D, complete spectral Doppler, and color Doppler. Patient status: Inpatient. CARDIAC ANATOMY LEFT VENTRICLE: The cavity size was normal. Wall thickness was at the upper limits of normal. Systolic function was normal. The estimated ejection fraction was in the range of 60% to 65%. Wall motion was normal; there were no regional wall motion abnormalities. AORTIC VALVE: Trileaflet; normal thickness, mildly calcified leaflets. Doppler: Transvalvular velocity was within the normal range. There was no stenosis. No regurgitation. AORTA: Aortic root: The aortic root was normal in size. MITRAL VALVE: Structurally normal valve. Doppler: Transvalvular velocity was within the normal range. There was no evidence for stenosis. Mild regurgitation. Valve area by pressure half-time: 3.61cm^2. Peak gradient: 4mm Hg (D). LEFT ATRIUM: The atrium was normal in size. RIGHT VENTRICLE: The cavity size was normal. Wall thickness was normal. PULMONIC VALVE: Doppler: Transvalvular velocity was within the normal range. There was no evidence for stenosis. No regurgitation. TRICUSPID VALVE: Structurally normal valve. Doppler: Transvalvular velocity was within the normal range. Mild regurgitation. PULMONARY ARTERY: The main pulmonary artery was normal-sized. Systolic pressure could not be accurately estimated. RIGHT ATRIUM: The atrium was normal in size. PERICARDIUM: There was no pericardial effusion. SYSTEMIC VEINS: Inferior vena cava: The vessel was mildly dilated. BASIC MEASUREMENTS ADULT NORMAL Left ventricle LV internal dimension, ED, chordal level, 47.9 mm 43-52 PLAX LV internal dimension, ES, chordal level, 34.2 mm 23-38 PLAX Fractional shortening, chordal level, PLAX *29 % >29 LV posterior wall thickness, ED 10.8 mm IVS/LVPW ratio, ED 1.03 <1.3 Ventricular septum Septal thickness, ED 11.1 mm Aortic valve Leaflet separation 21 mm 15-26 Right ventricle RV internal dimension, ED, PLAX 29.6 mm 19-38 BASIC MEASUREMENTS ADULT NORMAL Aortic valve Leaflet separation 21 mm 15-26 Aorta Root diameter, ED 32 mm 20-37 Left atrium Anterior-posterior dimension, ES 39 mm 19-40 LA/aortic root ratio 1.22 DOPPLER MEASUREMENTS ADULT NORMAL Mitral valve Peak E-wave velocity 99.2 cm/s Peak A-wave velocity 78 cm/s Pressure half-time 61 ms Peak gradient, D 4 mm Hg Peak E/A ratio 1.3 Valve area, pressure half-time 3.61 cm^2 Tricuspid valve Regurgitant peak velocity 231 cm/s Peak RV-RA gradient, S 21 mm Hg Maximal regurgitant velocity 231 cm/s LEGEND: Mean values are shown as u=mean value. Asterisk (*) joe values outside specified normal range. Prepared and signed by Abe Man [id number]
--- NOTE | 2016-09-21 10:50 | HHI.CCPN ---
Subjective Remarks 70 year-old male with known history of hypertension, hyperlipidemia, diabetes who presented to the emergency department because of shortness of breath and dyspnea. Patient has had a rather plethora symptoms that started back starting last . At that time the patient did have some fever, chills and did not feel well. They're planning on coming down from [place]. Him and his did get in the car and drive down here from [place] on Wednesday morning. Wednesday afternoon and evening the patient did not feel well again. He had some diaphoresis, nausea and vomiting Wednesday night. They proceeded to continue to drive to [place] and they got here yesterday. Patient was still not feeling well. Had fever, cough, chills. This morning patient had significant shortness of breath, dyspnea, lethargy so they came to the hospital for evaluation. Upon presentation appears if the patient was in severe septic shock with multiorgan dysfunction in the emergency department patient was given 2 L of fluid bolus to maintain blood pressure. He does have respiratory failure with significant hypoxia. Patient was advanced on oxygenation to now he is on BiPAP for respiratory support. It was indicated by the ER physician that they recommended him to be intubated, however he preferred not to be intubated at that time. Laboratory studies to indicate significant lactic acid acidosis, acute renal failure, severe bandemia, elevated cardiac enzymes. ER physician did contact critical care physician recommended admission. ER physician to pursue a CT scan after she obtained admission status. It does show significant pneumonia bilaterally. Mainly right middle lobe. It appears to be very dense consolidation. Upon evaluating the patient personally, patient is still rather tachypneic and respiratory rate 35-40. Tidal volume on BiPAP was anywhere from 300-450. I notify him of how sick he is. That he would probably benefit from oral intubation. Patient is open to it at this time to be proactive rather than reactive. 09/21/16: Patient seen and examined today with Dr. Alarcon, Patient will significant hypotension throughout the evening. Patient was placed on Levophed up to 20 mics, started on vasopressin 0.03. Patient currently tolerating ventilator well. Still requiring pressors for blood pressure management. Will need central line for pressor administration. Objective - Vital Signs Date Time Temp Pulse Resp B/P Pulse Ox O2 Delivery O2 Flow Rate FiO2 09/21/16 10:00 72 09/21/16 10:00 16 96/52 95 09/21/16 08:05 45 09/21/16 08:00 97.9 09/20/16 15:27 BiPAP 09/20/16 11:58 4 Intake and Output 09/20/16 09/20/16 09/21/16 08:00 16:00 00:00 Intake Total 4132 ml Output Total 100 ml 350 ml Balance -100 ml 3782 ml Result Diagram: 09/21/16 0450 09/21/16 0450 Other Results Last Impressions Chest X-Ray 09/20/16 1005 Signed Impressions: Service Date/Time: Tuesday, September 20, 2016 10:14 - CONCLUSION: 1. Consolidative opacity in the right midlung most characteristic of pneumonia. 2. Milder streaky opacity in the left perihilar region and left lung base. Osmel Chung MD Chest CT 09/20/16 0000 Signed Impressions: Service Date/Time: Tuesday, September 20, 2016 12:18 - CONCLUSION: 1. Large areas of dense consolidation most characteristic of pneumonia. 2. Mild cardiomegaly. Osmel Chung MD Objective Remarks GENERAL: Well-developed, well-nourished, and respiratory failure, intubated and sedated HEENT: Head is normocephalic without any lesions or masses noted. Facial features are symmetric. Orally intubated NECK: Supple without any masses. Trachea midline no deviation. No JVD, CARDIAC: Regular rhythm, regular rate. S1/S2 are heard. No murmurs gallops or rubs. LUNGS: Diminished breath sounds noted throughout, still with rhonchi and wheeze noted bilateral lungs. No rales. No use of accessory muscles on inspiration or expiration. ABDOMEN: Soft, nontender. Nondistended. Bowel sounds heard in all 4 quadrants. No organomegaly or masses. Negative rebound, negative guarding EXTREMITIES: No edema, pulses are equal bilaterally. No cyanosis or clubbing NEUROLOGY: Mood and affect appear appropriate. Cranial nerves II through XII grossly intact. Moving all extremities, retract to painful stimuli A/P Diagnosis: (1) Sepsis with multi-organ dysfunction ICD Code: A41.9 (2) Septic shock ICD Code: A41.9 (3) Adult respiratory distress syndrome ICD Code: J80 (4) Acute respiratory failure with hypoxia ICD Code: J96.01 (5) Bilateral pneumonia ICD Code: J18.9 (6) Lactic acid acidosis ICD Code: E87.2 (7) Non-ST elevated myocardial infarction ICD Code: I21.4 (8) Elevated CPK ICD Code: R74.8 (9) Troponin level elevated ICD Code: R79.89 (10) Acute renal failure ICD Code: N17.9 (11) Diabetes ICD Code: E11.9 Assessment and Plan NEUROLOGY Mildly anxious from a clinical condition Xanax, Valium, Ativan as needed Patient sedated with fentanyl, off propofol secondary to hypotension Daily sedation vacation PULMONOLOGY Acute hypoxic respiratory failure Adult respiratory distress syndrome Bilateral pneumonia Cannot rule out pulmonary emboli Assist-control ventilation: 14/500/10+/45% Duo nebs every 4 hours and every 2 hours as needed Daily CPAP trials CARDIOLOGY Septic shock Elevated CPK Elevated troponin Non-ST elevated myocardial infarction Hyperlipidemia Status post 4 L normal saline bolus, with improvement of blood pressure Currently on Levophed, vasopressin for blood pressure management Cardiac enzymes are trending downward Echocardiogram indicates ejection fraction 60-65%. Mild mitral valve regurgitation, mild tricuspid valve regurgitation Continue aspirin Unable to use beta donna, nitroglycerin due to hypotension Awaiting lipid panel Continue therapeutic Lovenox, for NSTEMI and because patient high risk for PE due to recent car travel, presenting symptoms, unable to rule out out for pulmonary emboli due to renal function and respiratory status. GASTROINTESTINAL Diabetic diet Protonix for GI protection RENAL Acute renal failure, unknown chronicity, improving Metabolic acidosis Would like to continue IV fluids, however with worsening respiratory status will hold at this time start if patient is intubated and respiratory status improves Monitor renal function Avoid nephrotoxins ICU electrolyte placement protocol INFECTIOUS DISEASE Bilateral pneumonia, possible aspiration Septic shock Lactic acid acidosis, improving Bandemia Bacteremia Patient started on empirical antibiotics to include Zosyn, Zithromax, start vancomycin Continue to trend lactic acid level Influenza testing is negative Blood cultures are +4/4 gram-positive cocci Sputum culture is pending Legionella and strep pneumo antigen are negative HEMATOLOGY Continue follow CBC --Awaiting bilateral lower extremity venous doppler to eval for DVT, if negative can change to DVD dosing of Lovenox ENDOCRINOLOGY Diabetes Accu-Cheks with sliding scale insulin Stress dose steroids: Solu-Medrol 60 mg every 6 hours TSH level is mildly low, check T3/T4. Likely sick euthyroid Cortisol level is normal PROPHYLAXIS DVT prevention with Lovenox GI protection with Protonix LINES Peripheral IVs CODE STATUS Full code Critical care time 52 minutes excluding procedures Attending Attestation: I saw and evaluated the patient together with FABIAN Townsend and a joint plan was made. The above documentation reflects the joint plan, and I agree with the above, unless otherwise indicated below. I personally saw and examined the patient. In brief, this is a 70-year-old male who presented with acute hypoxic respiratory failure requiring emergent intubation mechanical ventilation, septic shock, community-acquired versus aspiration pneumonia, NSTEMI, acute kidney injury. In last 24 hours, his pressor requirement his increased and he is in florid septic shock. When I examined him, his norepinephrine requirement is slightly downtrending. Clinically he appears intravascularly euvolemic and no longer volume responsive. His lungs are coarse bilaterally. His abdomen is soft. His urine is minimal but adequate. Active problems: Acute hypoxic respiratory failure Acute pneumonia Acute kidney injury Septic shock Type 2 NSTEMI Plan: Wean FiO2 for goal SPO2 greater than 90% Does not meet SBT criteria given hemodynamic instability Wean pressors for goal map greater than 65 No current need for additional volume resuscitation as patient appears intravascularly euvolemic Continue antibiotics as described above Continue monitor strict I's and O's Supportive care for his man ischemia. Echo without evidence of regional wall motion normalities. This is unlikely to be acute coronary syndrome Unlikely to be pulmonary embolus given trace tricuspid regurg, normal RV function, no evidence for elevated RVSP or pulmonary hypertension. Patient remains critically ill with multiorgan system dysfunction. Critical care time 52 minutes as documented above, exclusive of procedures. Problem Qualifiers (1) Bilateral pneumonia: Qualified Code: J18.9 - Pneumonia of both lungs due to infectious organism, unspecified part of lung (2) Acute renal failure: Qualified Code: N17.9 - Acute renal failure, unspecified acute renal failure type (3) Diabetes: Qualified Code: E11.8 - Type 2 diabetes mellitus with complication, with long- term current use of insulin [place] Sep 21, 2016 10:50 Oliver Alarcon MD Sep 21, 2016 18:15
[2016-09-21] MEDS ORDERED: AZITHROMYCIN INJ 500 MG in SODIUM CHLOR 0.9% 250 ML INJ 250 ML IV SCH (11:00)
[2016-09-21] MEDS ORDERED: VANCOMYCIN INJ 1,000 MG in SODIUM CHLOR 0.9% 250 ML INJ 250 ML IV ONE (11:00)
[2016-09-21] MEDS ORDERED: Vancomycin Consult Pharmacy 1 EA OTHER SCH (11:00)
--- NOTE | 2016-09-21 11:13 | RADHPO ---
EXAM DATE/TIME: 09/21/2016 14:45 [facility] COMPARISON: No previous studies available for comparison. INDICATIONS : Swelling in bilateral lower extremities. MEDICAL HISTORY : Hypercholesterolemia. Hypertension. Irregular heartbeat. Dyspnea. Prostate problems. Diabetes. Proc Tech giancarlo back pain. SURGICAL HISTORY : Orthopedic surgery, back. Stimulator implant. ENCOUNTER: Initial ACUITY: 1 day PAIN SCORE: Non-responsive LOCATION: Bilateral legs. TECHNIQUE: Venous ultrasound of the left and right leg was performed from the inguinal ligament to the proximal calf. Real-time, color Doppler and spectral tracing, compression and augmentation techniques were us ed. FINDINGS: RIGHT LEG: There is normal compressibility of the deep venous system from the inguinal region to the proximal ca lf. No echogenic clot is seen in the lumen of the common femoral, femoral, popliteal, and posterior tibial veins. There is a normal response of the venous system to proximal and distal augmentation an d respiration. LEFT LEG: There is normal compressibility of the deep venous system from the inguinal region to the proximal ca lf. No echogenic clot is seen in the lumen of the common femoral, femoral, popliteal, and posterior tibial veins. There is a normal response of the venous system to proximal and distal augmentation an d respiration. CONCLUSION: No deep venous thrombosis in either lower extremity. Darian Roldan MD on September 21, 2016 at 11:11 Board Certified Radiologist. This report was verified electronically.
[2016-09-21 11:46] LABS: HDL CHOLESTEROL 9.9 MG/DL (40.0-60.0)
[2016-09-21 12:00] LABS: FREE T3 1.05 PG/ML (2.18-3.98); FREE T4 1.13 NG/DL (0.76-1.46)
[2016-09-21] MEDS: VANCOMYCIN INJ 1,300 MG in SODIUM CHLORID 0.9% 500 ML INJ 500 ML IV SCH (12:00)
[2016-09-21] MEDS: VASOPRESSIN INJ 40 UNITS in DEXTROSE 5% IN WATER 100ML INJ 98 ML IV SCH ×2 (18:08)
[2016-09-22] VITALS (44 sets, daily range): BP systolic 103–159; BP diastolic 11–78; PULSE 68–100; RESP 20–39; TEMP 97.9–98.7; O2SAT 92–98
[2016-09-22] MEDS: methylPREDNISolone SOD SUCC 125 MG/2 ML VIAL IV SCH ×3 (00:02→17:53)
[2016-09-22] MEDS: SODIUM CHLOR 0.9% 1000 ML INJ 1,000 ML IV SCH (00:03)
[2016-09-22] MEDS: PIPERACIL-TAZO 3.375 GM PREMIX 50 ML IV SCH ×4 (02:17→20:08)
[2016-09-22] MEDS: RESP: ALBUTEROL 2.5 MG/IPRATROPIUM 0.5 MG NEB (SCH) INH ×2 (03:35→07:10)
[2016-09-22] MEDS: CHLORHEXIDINE GLUCONATE 2 % 1 PACK (2 CLOTHS) TOP SCH (04:00)
[2016-09-22 05:26] LABS: AUTOMATED NEUTROPHIL # 3.2 TH/MM3 (1.8-7.7); HEMATOCRIT 28.2 % (39.0-51.0); LYMPHOCYTE # 0.3 TH/MM3 (1.0-4.8); MEAN CELL VOLUME 97.9 FL (80.0-100.0); MEAN CORPUSCULAR HEMOGLOBIN 32.2 PG (27.0-34.0); MEAN CORPUSCULAR HGB CONC 32.8 % (32.0-36.0); MONO % 6.5 % (0.0-8.0); NEUT % 84.5 % (16.0-70.0); PLATELET COUNT 59 TH/MM3 (150-450); RED BLOOD COUNT 2.88 MIL/MM3 (4.50-5.90); RED CELL DISTRIBUTION WIDTH 13.6 % (11.6-17.2); WHITE BLOOD COUNT 3.7 TH/MM3 (4.0-11.0)
[2016-09-22 05:33] LABS: POTASSIUM 3.2 MEQ/L (3.5-5.1)
[2016-09-22 05:52] LABS: BICARBONATE 19.8 MEQ/L (21.0-32.0); MAGNESIUM 2.6 MG/DL (1.5-2.5)
[2016-09-22 05:53] LABS: HEMO FLAGS AUTO DIFF
[2016-09-22] MEDS: ENOXAPARIN SODIUM 60 MG/0.6 ML SYRINGE SQ SCH ×2 (05:57→17:53)
--- NOTE | 2016-09-22 06:15 | RADHPO ---
EXAM DATE/TIME: 09/22/2016 05:44 [facility] COMPARISON: CHEST SINGLE AP, September 20, 2016, 17:56. INDICATIONS : Respiratory failure. MEDICAL HISTORY : None. SURGICAL HISTORY : None. ENCOUNTER: Subsequent ACUITY: 3 days PAIN SCORE: Non-responsive. LOCATION: Bilateral chest FINDINGS: A single AP semierect view of the chest was obtained and again demonstrates endotracheal tube in plac e with the tip approximately 4 cm above the myah. A nasogastric tube is seen coursing through the e sophagus into the stomach. Consolidative opacity remains in the right central lung. There is milder h azy opacity in the left perihilar region and left lung base. Heart size appears at the upper limits o f normal. There is no effusion. CONCLUSION: 1. Consolidative opacity remains in the right lateral midlung. 2. Right hazy opacity is present in left perihilar region and left lung base without significant turpin ge. Osmel Chung MD on September 22, 2016 at 6:13 Board Certified Radiologist. This report was verified electronically.
[2016-09-22 06:39] LABS: CALCIUM-PROTEIN CORRECTED 7.7 MG/DL (8.5-10.1)
[2016-09-22] MEDS: INSULIN ASPART SUPPLEMENTAL SCALE SQ SCH (06:41)
[2016-09-22] MEDS ORDERED: DEXTROSE 50% IN WATER 50 ML VIAL(D50) IV PUSH PRN (07:00)
--- NOTE | 2016-09-22 07:14 | HHI.CCPN ---
Subjective Remarks/Hospital Course 70 year-old male with known history of hypertension, hyperlipidemia, diabetes who presented to the emergency department because of shortness of breath and dyspnea. Patient has had a rather plethora symptoms that started back starting last . At that time the patient did have some fever, chills and did not feel well. They're planning on coming down from [place]. Him and his did get in the car and drive down here from [place] on Wednesday morning. Wednesday afternoon and evening the patient did not feel well again. He had some diaphoresis, nausea and vomiting Wednesday night. They proceeded to continue to drive to [place] and they got here yesterday. Patient was still not feeling well. Had fever, cough, chills. This morning patient had significant shortness of breath, dyspnea, lethargy so they came to the hospital for evaluation. Upon presentation appears if the patient was in severe septic shock with multiorgan dysfunction in the emergency department patient was given 2 L of fluid bolus to maintain blood pressure. He does have respiratory failure with significant hypoxia. Patient was advanced on oxygenation to now he is on BiPAP for respiratory support. It was indicated by the ER physician that they recommended him to be intubated, however he preferred not to be intubated at that time. Laboratory studies to indicate significant lactic acid acidosis, acute renal failure, severe bandemia, elevated cardiac enzymes. ER physician did contact critical care physician recommended admission. ER physician to pursue a CT scan after she obtained admission status. It does show significant pneumonia bilaterally. Mainly right middle lobe. It appears to be very dense consolidation. Upon evaluating the patient personally, patient is still rather tachypneic and respiratory rate 35-40. Tidal volume on BiPAP was anywhere from 300-450. I notify him of how sick he is. That he would probably benefit from oral intubation. Patient is open to it at this time to be proactive rather than reactive. 09/21/16: Patient seen and examined today with Dr. Alarcon, Patient will significant hypotension throughout the evening. Patient was placed on Levophed up to 20 mics, started on vasopressin 0.03. Patient currently tolerating ventilator well. Still requiring pressors for blood pressure management. Will need central line for pressor administration. 09/22: blood pressure stabilized out yesterday. not on pressors. blood cultures growing GPCs, Vancomycin added. plt count still low, but multiple other reasons for thrombocytopenia. RASS 0 this AM. Objective Vital Signs Date Time Temp Pulse Resp B/P Pulse Ox O2 Delivery O2 Flow Rate FiO2 09/22/16 06:00 80 20 119/57 98 09/22/16 04:14 40 09/22/16 04:00 97.9 09/20/16 15:27 BiPAP 09/20/16 11:58 4 Intake and Output 09/21/16 09/21/16 09/22/16 08:00 16:00 00:00 Intake Total 3130 ml 1948 ml 1483 ml Output Total 200 ml 550 ml 620.0 ml Balance 2930 ml 1398 ml 863.0 ml Result Diagram: 09/22/16 0450 09/22/16 0450 Other Results Microbiology Date/Time Procedure Status Source Growth 09/20/16 10:15 Influenza Types A,B Antigen (NILA) - Final Complete Nasal Aspirate NEGATIVE FOR FLU A AND B ANTIGEN.... 09/20/16 18:10 Legionella Antigen - Final Complete Urine Random Urine PRESUMPTIVE NEGATIVE FOR LEGIONELLA P... 09/20/16 18:10 Streptococcus pneumoniae Antigen (M - Final Complete Urine Random Urine PRESUMPTIVE NEGATIVE FOR STREPTOCOCCU... Imaging Last Impressions Chest X-Ray 09/20/16 1005 Signed Impressions: Service Date/Time: Tuesday, September 20, 2016 10:14 - CONCLUSION: 1. Consolidative opacity in the right midlung most characteristic of pneumonia. 2. Milder streaky opacity in the left perihilar region and left lung base. Osmel Chung MD Chest CT 09/20/16 0000 Signed Impressions: Service Date/Time: Tuesday, September 20, 2016 12:18 - CONCLUSION: 1. Large areas of dense consolidation most characteristic of pneumonia. 2. Mild cardiomegaly. Osmel Chung MD Objective Remarks GENERAL: elderly male, lying in bed. intubated. critically ill. HEENT: NCAT. PERRL. mucous membranes moist. NECK: trachea midline. jvd difficult to assess secondary to obesity. CARDIAC: normal rate, regular rhythm. no appreciable murmurs. CHEST: equal chest rise. clear to auscultation ABDOMEN: obese, soft, moderately distended, nontender. no guarding. EXTREMITIES: 1+ edema. distal pulses 2+. good cap refill. NEURO: RASS 0. CAM -. FC x 4. A/P Problem List: (1) Sepsis with multi-organ dysfunction ICD Code: A41.9 Status: Acute (2) Septic shock ICD Code: A41.9 Status: Acute (3) Adult respiratory distress syndrome ICD Code: J80 Status: Acute (4) Acute respiratory failure with hypoxia ICD Code: J96.01 Status: Acute (5) Bilateral pneumonia ICD Code: J18.9 Status: Acute (6) Lactic acid acidosis ICD Code: E87.2 Status: Acute (7) Non-ST elevated myocardial infarction ICD Code: I21.4 Status: Acute (8) Elevated CPK ICD Code: R74.8 Status: Acute (9) Troponin level elevated ICD Code: R79.89 Status: Acute (10) Acute renal failure ICD Code: N17.9 Status: Acute (11) Diabetes ICD Code: E11.9 Status: Acute Assessment and Plan Assessment: 70yM with acute hypoxic respiratory failure secondary to acute pneumonia and possible early ARDS, Acute kidney injury, metabolic acidosis, also now with Gram positive bacteremia. Certainly given his age, he is at high risk for complications and continued decompensation. He remains critically ill. NEUROLOGY Agitation association with mechanical ventilation -- fentanyl as needed -- RASS goal 0. PULMONOLOGY Acute hypoxic respiratory failure- resolving. Adult respiratory distress syndrome- resolving. Bilateral pneumonia Cannot rule out pulmonary emboli stable for SBT today. Duo nebs every 4 hours and every 2 hours as needed --if he passes SBT, will proceed with extubation --His renal function is slowly improving. I think it is reasonable to rule out PE when his renal function normalizes with CT pulmonary angiogram. CARDIOLOGY Septic shock- resolving. Elevated CPK- resolved. Elevated troponin Type 2 Non-ST elevated myocardial infarction Hyperlipidemia 09/21 TTE: EF 60-65%. NRWMA. normal RV function. aortic calcifications. not consistent with hemodynamically significant PE. continue aspirin Unable to use beta donna, nitroglycerin due to hypotension. will plan on beta blockade when able. continue therapeutic Lovenox, for NSTEMI and because patient high risk for PE due to recent car travel, presenting symptoms, unable to rule out out for pulmonary emboli due to renal function and respiratory status. GASTROINTESTINAL Acute protein calorie malnutrition- mild continue tube feeds. Protonix for GI protection --daily BMP RENAL Acute kidney injury- resolving. d/c mivf today as patient has adequate uop and appears intravascularly euvolemic. I do not want him to get volume overloaded, particularly if we pursue extubation today. Monitor renal function Avoid nephrotoxins ICU electrolyte placement protocol INFECTIOUS DISEASE Bilateral pneumonia, possible aspiration Septic shock Lactic acid acidosis Bandemia Gram positive Bacteremia Vancomycin added 09/21. --Continue Zosyn --d/c Zithromax -- f/u speciation and sensitivities. Influenza negative. Legionella and strep pneumo antigen- negative. HEMATOLOGY Thrombocytopenia Continue follow CBC --LE doppler negative for DVT 09/21. -- 4T score: 1, low risk for HIT. continue to monitor daily platelet counts. ENDOCRINOLOGY Diabetes Accu-Cheks with sliding scale insulin, tighten SSI. Stress dose steroids: start rapid wean: 60 q12 x 24h, 60 q24h x 1d, then off. PROPHYLAXIS DVT prevention with Lovenox GI protection with Protonix LINES Peripheral IVs CODE STATUS Full code Critical care time 57 minutes excluding procedures I have seen and examined a patient in the ICU. The patient was breathing at RR 40s looking tiered. I have reviewed CT immages with patient's daughter and explaioned to patient and her that the endotracheal intubation and mechanical ventilation is a necessary next step in treatment. They both understood and agreed. I agree with a assessment and plan above. Problem Qualifiers (1) Bilateral pneumonia: Qualified Code: J18.9 - Pneumonia of both lungs due to infectious organism, unspecified part of lung (2) Acute renal failure: Qualified Code: N17.9 - Acute renal failure, unspecified acute renal failure type (3) Diabetes: Qualified Code: E11.8 - Type 2 diabetes mellitus with complication, with long- term current use of insulin Oliver Alarcon MD Sep 22, 2016 07:14
[2016-09-22 07:22] LABS: SCAN/DIFF AUTO DIFF CONFIRMED
[2016-09-22] MEDS ORDERED: ACETAMINOPHEN 325 MG TAB PO PRN (07:30)
[2016-09-22] MEDS ORDERED: HYDROmorphone HCL PF 1 MG/ML VIAL IV PUSH PRN (07:30)
[2016-09-22] MEDS: SODIUM CHLORIDE 0.9% FLUSH 5 ML FLUSH IV FLUSH SCH ×2 (07:54→20:08)
[2016-09-22] MEDS: ASPIRIN EC 325 MG TABEC PO SCH (07:54)
[2016-09-22] MEDS: PANTOPRAZOLE SOD 40 MG DELAYED RELEASE TAB PO SCH (07:54)
[2016-09-22] MEDS ORDERED: PILL SPLITTER OTHER PRN (08:45)
[2016-09-22] MEDS ORDERED: ACTO15TA11 PO (09:38)
[2016-09-22] MEDS: RESP: ALBUTEROL 2.5 MG/IPRATROPIUM 0.5 MG NEB (PRN) INH ×4 (11:02→23:44)
[2016-09-22] MEDS ORDERED: FUROSEMIDE 40 MG/4 ML VIAL ONE (11:05)
[2016-09-22] MEDS: INSULIN NovoLIN REGULAR SUPPLEMENTAL SCALE SQ SCH ×2 (12:00→17:53)
[2016-09-22] MEDS: VANCOMYCIN INJ 1,300 MG in SODIUM CHLORID 0.9% 500 ML INJ 500 ML IV SCH (12:00)
[2016-09-22] MEDS: FAMOTIDINE 20 MG TAB PO SCH (20:08)
[2016-09-22] MEDS ORDERED: INSULIN DETEMIR 100 UNITS/ML VIAL SQ SCH (21:00)
[2016-09-22] MEDS ORDERED: INSULIN HUMAN REGULAR 1,000 UNITS/10 ML VIAL SQ ONE (21:15)
[2016-09-23] VITALS (41 sets, daily range): BP systolic 115–179; BP diastolic 56–89; PULSE 64–98; RESP 0–43; TEMP 97.9–98.7; O2SAT 92–99
[2016-09-23] MEDS: INSULIN NovoLIN REGULAR SUPPLEMENTAL SCALE SQ SCH ×6 (00:13→21:22)
[2016-09-23] MEDS: PIPERACIL-TAZO 3.375 GM PREMIX 50 ML IV SCH ×4 (02:05→21:20)
[2016-09-23] MEDS: CHLORHEXIDINE GLUCONATE 2 % 1 PACK (2 CLOTHS) TOP SCH (02:05)
[2016-09-23] MEDS: RESP: ALBUTEROL 2.5 MG/IPRATROPIUM 0.5 MG NEB (PRN) INH ×2 (03:44→07:27)
[2016-09-23] MEDS: ENOXAPARIN SODIUM 60 MG/0.6 ML SYRINGE SQ SCH ×2 (05:25→17:09)
[2016-09-23] MEDS: methylPREDNISolone SOD SUCC 125 MG/2 ML VIAL IV SCH (05:26)
[2016-09-23 05:29] LABS: HEMATOCRIT 29.1 % (39.0-51.0); MEAN CELL VOLUME 96.8 FL (80.0-100.0); MEAN CORPUSCULAR HEMOGLOBIN 31.8 PG (27.0-34.0); MEAN CORPUSCULAR HGB CONC 32.9 % (32.0-36.0); PLATELET COUNT 78 TH/MM3 (150-450); RED BLOOD COUNT 3.01 MIL/MM3 (4.50-5.90); RED CELL DISTRIBUTION WIDTH 13.5 % (11.6-17.2); WHITE BLOOD COUNT 4.2 TH/MM3 (4.0-11.0)
[2016-09-23 05:37] LABS: POTASSIUM 3.6 MEQ/L (3.5-5.1)
[2016-09-23 05:40] LABS: BICARBONATE 22.7 MEQ/L (21.0-32.0)
[2016-09-23] MEDS ORDERED: FUROSEMIDE 100 MG/10 ML VIAL IV PUSH ONE (06:00)
[2016-09-23] MEDS ORDERED: DEXTROSE 50% IN WATER 50 ML VIAL(D50) IV PUSH PRN (06:00)
[2016-09-23 06:15] LABS: REVIEW FLAG FINAL
[2016-09-23] MEDS: SODIUM CHLORIDE 0.9% FLUSH 5 ML FLUSH IV FLUSH SCH ×2 (07:36→21:19)
[2016-09-23] MEDS: FAMOTIDINE 20 MG TAB PO SCH ×2 (07:37→21:19)
[2016-09-23] MEDS: ASPIRIN EC 325 MG TABEC PO SCH (07:37)
--- NOTE | 2016-09-23 08:43 | HHI.PR ---
Subjective Remarks Follow-up respiratory failure, pneumonia. The patient states that he feels better today, but still has shortness of breath. Reports right-sided chest pain as well that is unchanged. No nausea or vomiting. Objective Vitals Vital Signs Date Time Temp Pulse Resp B/P Pulse Ox O2 Delivery O2 Flow Rate FiO2 09/23/16 07:29 95 Nasal Cannula 4.00 09/23/16 07:15 76 36 96 09/23/16 07:00 95 Nasal Cannula 4.00 09/23/16 07:00 82 36 164/76 95 09/23/16 06:00 84 29 145/73 96 09/23/16 06:00 84 09/23/16 05:00 72 18 123/70 96 09/23/16 04:00 76 09/23/16 04:00 98.7 76 32 136/65 96 09/23/16 03:00 64 20 124/64 97 09/23/16 02:00 68 09/23/16 02:00 68 19 123/56 96 09/23/16 01:00 72 21 115/59 97 09/23/16 00:00 86 09/23/16 00:00 97.9 86 30 149/68 96 09/22/16 23:47 95 Nasal Cannula 4.00 09/22/16 23:00 74 24 122/61 97 09/22/16 22:00 100 36 152/68 95 09/22/16 22:00 100 09/22/16 21:00 86 34 140/62 95 09/22/16 20:00 73 09/22/16 20:00 98.0 86 32 143/59 95 09/22/16 19:50 96 Nasal Cannula 4.00 09/22/16 19:42 97 Nasal Cannula 6.00 09/22/16 19:00 80 33 142/63 95 09/22/16 18:00 85 09/22/16 18:00 88 37 138/65 94 09/22/16 17:30 84 33 96 09/22/16 17:15 80 24 95 09/22/16 17:00 96 145/66 96 09/22/16 16:00 98.1 84 31 154/73 96 09/22/16 16:00 74 09/22/16 15:00 70 30 138/69 95 09/22/16 14:15 80 39 95 09/22/16 14:00 87 09/22/16 14:00 98.7 74 33 127/62 95 09/22/16 13:45 80 30 94 09/22/16 13:30 78 31 95 09/22/16 13:15 86 27 94 09/22/16 13:00 88 29 140/70 96 09/22/16 12:45 92 32 93 09/22/16 12:30 92 32 94 09/22/16 12:15 88 30 94 09/22/16 12:00 74 09/22/16 12:00 94 29 152/71 95 09/22/16 11:30 87 09/22/16 11:15 90 31 95 09/22/16 11:07 88 35 159/78 96 09/22/16 11:00 88 35 92 09/22/16 10:00 76 09/22/16 10:00 82 30 134/61 94 09/22/16 09:00 82 29 95 09/22/16 08:45 76 22 96 09/22/16 08:30 82 27 96 I/O 09/22/16 09/22/16 09/22/16 09/23/16 09/23/16 09/23/16 06:59 14:59 22:59 06:59 14:59 22:59 Intake Total 1186 ml 1626 ml 824 ml Output Total 300 ml 1700 ml 2700 ml 450 ml Balance 886 ml -74 ml -1876 ml -450 ml Intake Oral 650 ml 240 ml IV Total 696 ml 951 ml 584 ml Tube Feeding 430 ml Other 60 ml 25 ml Output Urine Total 300 ml 1700 ml 2600 ml 450 ml Stool Total 100 ml # Voids 2 # Bowel Movements 0 3 Result Diagram: 09/23/16 0455 09/23/16 0455 Imaging Last Impressions Chest X-Ray 09/22/16 0600 Signed Impressions: Service Date/Time: Thursday, September 22, 2016 05:44 - CONCLUSION: 1. Consolidative opacity remains in the right lateral midlung. 2. Right hazy opacity is present in left perihilar region and left lung base without significant change. Osmel Chung MD Lower Extremity Ultrasound 09/21/16 0000 Signed Impressions: Service Date/Time: Wednesday, September 21, 2016 14:45 - CONCLUSION: No deep venous thrombosis in either lower extremity. Darian Roldan MD Chest CT 09/20/16 0000 Signed Impressions: Service Date/Time: Tuesday, September 20, 2016 12:18 - CONCLUSION: 1. Large areas of dense consolidation most characteristic of pneumonia. 2. Mild cardiomegaly. Osmel Chung MD Objective Remarks General: No acute distress. Heart: Regular rate and rhythm. No murmur. Lungs: Clear to auscultation bilaterally. No wheezes, rales, or rhonchi. Breathing is nonlabored. Abdomen: Soft, nontender, nondistended. Extremities: 1+ bilateral lower extremity edema. Psych: Alert and oriented. Procedures None Urinary Catheter: No Vascular Central Line Catheter: No A/P Problem List: (1) Sepsis with multi-organ dysfunction ICD Code: A41.9 Status: Resolved (2) Septic shock ICD Code: A41.9 Status: Resolved (3) Adult respiratory distress syndrome ICD Code: J80 Status: Resolved (4) Acute respiratory failure with hypoxia ICD Code: J96.01 Status: Resolved (5) Bilateral pneumonia ICD Code: J18.9 Status: Acute (6) Hypotension ICD Code: I95.9 Status: Acute (7) Lactic acid acidosis ICD Code: E87.2 Status: Resolved (8) Non-ST elevated myocardial infarction ICD Code: I21.4 Status: Acute (9) Elevated CPK ICD Code: R74.8 Status: Acute (10) Troponin level elevated ICD Code: R79.89 Status: Acute (11) Acute renal failure ICD Code: N17.9 Status: Acute (12) Diabetes ICD Code: E11.9 Status: Chronic (13) Hyperlipidemia ICD Code: E78.5 Status: Chronic Assessment and Plan 1. Acute hypoxic respiratory failure: Resolved. Patient extubated and now tolerating oxygen per nasal cannula. Continue DuoNeb. Taper steroids. 2. Septic shock: Resolved. Continue antibiotics. 3. Pneumonia: Possible aspiration. Continue antibiotics, oxygen. 4. Non-ST elevation [place]: Troponin mildly elevated. Consult cardiology. Continue aspirin, Lovenox. Beta donna and nitroglycerin have been on hold secondary to hypotension. Start Coreg. 5. Mild acute protein calorie malnutrition: 6. Acute kidney injury: Improving. 7. Diabetes mellitus type 2: Chronic. Monitor Accu-Cheks and cover with sliding scale insulin. Continue Levemir. 8. DVT prophylaxis: Lovenox. 9. GI prophylaxis: Pepcid. 10. Bacteremia: Blood cultures positive for strep pneumoniae. Repeat blood cultures are negative so far. Continue antibiotics. 11. Hypokalemia: Improved. Supplement per electrolyte protocol. 12. CODE STATUS: Full code. Problem Qualifiers (1) Bilateral pneumonia: Qualified Code: J18.9 - Pneumonia of both lungs due to infectious organism, unspecified part of lung (2) Hypotension: Qualified Code: I95.9 - Hypotension, unspecified hypotension type (3) Acute renal failure: Qualified Code: N17.9 - Acute renal failure, unspecified acute renal failure type (4) Diabetes: Qualified Code: E11.8 - Type 2 diabetes mellitus with complication, with long- term current use of insulin (5) Hyperlipidemia: Qualified Code: E78.5 - Hyperlipidemia, unspecified hyperlipidemia type Mt Mathew MD Sep 23, 2016 08:43
[2016-09-23] MEDS: CARVEDILOL 3.125 MG TAB PO SCH ×2 (09:00→21:19)
[2016-09-23] MEDS: RESP: ALBUTEROL 2.5 MG/IPRATROPIUM 0.5 MG NEB (SCH) NEB ×3 (11:15→19:55)
[2016-09-23] MEDS: VANCOMYCIN INJ 1,300 MG in SODIUM CHLORID 0.9% 500 ML INJ 500 ML IV SCH (11:57)
--- NOTE | 2016-09-23 16:07 | MB ---
cc: ANGELICA GUTIERREZ MD DATE OF CONSULTATION 09/23/2016 REASON FOR CONSULTATION Atypical chest pain with indeterminate troponin. HISTORY OF PRESENT ILLNESS The patient is a very pleasant 70-year gentleman with no prior cardiac history who does have history of hypertension, hyperlipidemia, diabetes and obesity who presented after about a week of generally feeling poorly with fevers, chills and episode of nausea and vomiting. He finally presented with impending respiratory failure and was intubated upon arrival. His x-ray was consistent with a right middle lobe pneumonia. During his initial admission troponins were drawn which were mildly elevated. Upon extubation the patient did admit to some relatively vague right to central chest aching which has been ongoing for the last several weeks and does not have any particular exacerbating or relieving factors and is present currently though not to the same degree as it was over the week prior to admission. He is generally feeling better though he does get somewhat dizzy upon standing up. He has no actual syncopal episodes and again his chest pain and shortness of breath which were present on admission have been steadily improving. PAST MEDICAL HISTORY As above. CURRENT MEDICATIONS 1. Vancomycin. 2. Albuterol. 3. Coreg 3.125 mg b.i.d. 4. Pepcid 10 mg b.i.d. 5. Zosyn. ALLERGIES NO KNOWN DRUG ALLERGIES. PHYSICAL EXAMINATION VITAL SIGNS: Afebrile, pulse 66, respiratory rate 22, BP 142/83 sating 96% on 4 liters. GENERAL: A pleasant obese gentleman in no distress. NECK: No JVD. LUNGS: Clear auscultation bilaterally except for significantly reduced breath sounds at the bases. ABDOMEN: Benign. EXTREMITIES: No edema. LABORATORY DATA Sodium 151, potassium 3.6, chloride 118, bicarb 22.7, BUN 57, creatinine 1.2, glucose 216. INR is 1.3. White count 4.2, hematocrit 29.1, platelets 78. EKG shows sinus rhythm with minor nonspecific ST changes. BNP was 187. Troponins were indeterminate at 0.08-0.11. IMAGING Chest CT was consistent with large areas of dense consolidation most characteristic of pneumonia. IMPRESSION Elevated troponin and atypical chest pain. The patient's atypical chest pain is almost certainly due to his pneumonia and indeterminate troponin is not in a pattern consistent with acute coronary syndrome but rather due to mild demand ischemia in the setting of his pneumonia. His EKG is essentially nonischemic. He does have risk factors and I will have him undergo a nuclear stress test potentially tomorrow if his oxygen requirements have decreased. Further recommendations will be based on the clinical course. Thank you again for opportunity to participate in this patient's care. MD MONA Navarrete/BETO /3:40 PM /3:49 PM
[2016-09-23] MEDS ORDERED: methylPREDNISolone SOD SUCC 125 MG/2 ML VIAL IV SCH (18:00)
[2016-09-23] MEDS: INSULIN DETEMIR 100 UNITS/ML VIAL SQ SCH (21:00)
[2016-09-24] VITALS (37 sets, daily range): BP systolic 130–164; BP diastolic 58–83; PULSE 51–78; RESP 20–36; TEMP 98.1–98.8; O2SAT 91–99
[2016-09-24] MEDS: RESP: ALBUTEROL 2.5 MG/IPRATROPIUM 0.5 MG NEB (PRN) INH (00:29)
[2016-09-24] MEDS: PIPERACIL-TAZO 3.375 GM PREMIX 50 ML IV SCH ×4 (02:03→20:34)
[2016-09-24] MEDS: INSULIN NovoLIN REGULAR SUPPLEMENTAL SCALE SQ SCH ×5 (02:11→20:43)
[2016-09-24] MEDS: CHLORHEXIDINE GLUCONATE 2 % 1 PACK (2 CLOTHS) TOP SCH (04:00)
[2016-09-24 05:08] LABS: HEMATOCRIT 29.3 % (39.0-51.0); MEAN CELL VOLUME 96.3 FL (80.0-100.0); MEAN CORPUSCULAR HEMOGLOBIN 32.3 PG (27.0-34.0); MEAN CORPUSCULAR HGB CONC 33.5 % (32.0-36.0); PLATELET COUNT 84 TH/MM3 (150-450); RED BLOOD COUNT 3.05 MIL/MM3 (4.50-5.90); RED CELL DISTRIBUTION WIDTH 13.3 % (11.6-17.2); REVIEW FLAG FINAL; WHITE BLOOD COUNT 5.5 TH/MM3 (4.0-11.0)
[2016-09-24] MEDS: VANCOMYCIN INJ 1,400 MG in SODIUM CHLORID 0.9% 500 ML INJ 500 ML IV SCH ×2 (05:53→23:50)
[2016-09-24] MEDS: ENOXAPARIN SODIUM 60 MG/0.6 ML SYRINGE SQ SCH ×2 (05:57→18:06)
[2016-09-24 07:33] LABS: POTASSIUM 3.7 MEQ/L (3.5-5.1)
[2016-09-24 07:36] LABS: BICARBONATE 25.4 MEQ/L (21.0-32.0)
--- NOTE | 2016-09-24 07:47 | PD.CARD.PN ---
Subjective Subjective Remarks Pt feels well still notes continued mild chest ache. Objective Medications Administered Medications Medications (Trade) Dose Ordered Sig/Monica Route PRN Reason Start Time Stop Time Status Last Admin Dose Admin Potassium Chloride (KCl 20 Meq Premix Inj) 100 ml @ 50 mls/hr Q2H PRN IV For Potassium 2.8 - 3.2 mEq/L 09/20/16 12:45 09/22/16 09:29 Potassium Chloride (KCl 40 Meq/30 ml Liq) 40 meq UNSCH PRN PO/TUBE For Potassium 3.3 - 3.5 mEq/L 09/20/16 12:45 09/22/16 22:56 IV Flush (NS Flush) 2 ml BID IV FLUSH 09/20/16 21:00 09/23/16 21:19 Miscellaneous Information 1 [id number] XX 09/20/16 12:45 09/20/16 12:45 Chlorhexidine Gluconate (Chlorhexidine 2% Cloth) 3 pack Taper DAILY@04 TOP 09/21/16 04:00 09/17/17 03:59 09/24/16 04:00 Aspirin 325 mg 325 mg DAILY PO 09/20/16 16:30 09/23/16 07:37 Piperacillin Sod/ Tazobactam Sod (Zosyn 3.375 Gm Premix) 50 ml @ 100 mls/hr Q6H IV 09/20/16 20:00 09/24/16 02:03 Enoxaparin Sodium (Lovenox Inj) 45 mg Q12H SQ 09/21/16 06:00 09/24/16 05:57 Famotidine (Pepcid) 10 mg BID PO 09/22/16 21:00 09/23/16 21:19 Methylprednisolone Sodium Succinate (SoluMEDROL INJ) 60 mg Q24H IV 09/23/16 18:00 09/24/16 17:59 09/23/16 17:09 Insulin Detemir (Levemir Inj) 30 units HS SQ 09/23/16 21:00 09/23/16 21:00 Carvedilol 3.125 mg 3.125 mg Q12HR PO 09/23/16 09:00 09/23/16 21:19 Vancomycin HCl/ Sodium Chloride (Vancomycin Inj/ NS 500 ml Inj) 514 ml @ 250 mls/hr Q18H IV 09/24/16 06:00 09/24/16 05:53 Vital Signs / I&O Vital Signs Date Time Temp Pulse Resp B/P Pulse Ox O2 Delivery O2 Flow Rate FiO2 09/24/16 06:01 60 26 153/72 98 09/24/16 06:00 51 09/24/16 05:01 60 25 140/69 97 09/24/16 04:01 98.4 60 29 148/76 97 09/24/16 04:00 98.7 64 27 148/76 97 09/24/16 04:00 62 09/24/16 03:01 62 24 137/70 98 09/24/16 02:01 60 25 149/71 98 09/24/16 02:00 62 09/24/16 01:01 68 21 144/72 97 09/24/16 00:01 98.4 78 36 156/77 95 09/24/16 00:00 72 09/23/16 22:01 64 24 144/66 97 09/23/16 22:00 65 09/23/16 21:01 72 38 149/72 96 09/23/16 20:01 98.2 70 21 156/89 97 09/23/16 20:00 65 09/23/16 19:55 96 Nasal Cannula 3.00 09/23/16 19:01 74 0 175/81 95 09/23/16 19:00 Nasal Cannula 4.00 09/23/16 18:15 70 35 95 09/23/16 18:01 68 36 140/71 96 09/23/16 18:00 66 37 95 09/23/16 18:00 67 09/23/16 17:01 64 36 144/71 94 09/23/16 17:00 66 37 94 09/23/16 16:15 92 09/23/16 16:01 68 32 152/70 95 09/23/16 16:00 98.1 68 38 95 09/23/16 16:00 66 09/23/16 15:45 70 31 99 09/23/16 15:30 68 33 96 09/23/16 15:15 68 38 97 09/23/16 15:01 64 38 149/65 97 09/23/16 15:00 66 24 98 09/23/16 14:01 68 22 142/83 96 09/23/16 14:00 74 30 96 09/23/16 14:00 68 09/23/16 13:15 70 30 95 09/23/16 13:00 98.4 76 32 172/79 93 09/23/16 12:00 69 09/23/16 11:30 74 19 98 09/23/16 11:15 74 30 97 09/23/16 11:00 70 24 131/60 95 09/23/16 10:00 91 09/23/16 10:00 98 31 179/76 95 09/23/16 09:00 84 43 95 09/23/16 08:00 83 28 141/75 96 09/23/16 08:00 83 I/O 09/23/16 09/23/16 09/23/16 09/24/16 09/24/16 09/24/16 07:00 15:00 23:00 07:00 15:00 23:00 Intake Total 937 ml 170 ml 1060 ml Output Total 450 ml 1600 ml 400 ml Balance -450 ml -663 ml 170 ml 660 ml Intake Oral 450 ml 120 ml 360 ml IV Total 487 ml 50 ml 700 ml Output Urine Total 450 ml 1600 ml 400 ml # Voids 2 2 # Bowel Movements 2 0 0 Physical Exam GENERAL: This is a well-nourished, well-developed patient, in no apparent distress. CARDIOVASCULAR: Regular rate and rhythm without murmurs, gallops, or rubs. RESPIRATORY: Clear to auscultation. Breath sounds equal bilaterally. No wheezes , rales, or rhonchi. GASTROINTESTINAL: Abdomen soft, non-tender, nondistended. Normal active bowel sounds MUSCULOSKELETAL: Extremities without clubbing, cyanosis, or edema. NEURO: Alert & Oriented x4 to person, place, time, situation. Moves all ext x4 Laboratory Laboratory Tests Test 09/24/16 04:25 White Blood Count 5.5 TH/MM3 Red Blood Count 3.05 MIL/MM3 Hemoglobin 9.8 GM/DL Hematocrit 29.3 % Mean Corpuscular Volume 96.3 FL Mean Corpuscular Hemoglobin 32.3 PG Mean Corpuscular Hemoglobin 33.5 % Concent Red Cell Distribution Width 13.3 % Platelet Count 84 TH/MM3 Mean Platelet Volume 10.4 FL Sodium Level 150 MEQ/L Potassium Level 3.7 MEQ/L Chloride Level 115 MEQ/L Carbon Dioxide Level 25.4 MEQ/L Anion Gap 10 MEQ/L Blood Urea Nitrogen 52 MG/DL Creatinine 1.20 MG/DL Estimat Glomerular Filtration 60 ML/MIN Rate Random Glucose 171 MG/DL Calcium Level 7.9 MG/DL Imaging Last Impressions Chest X-Ray 09/22/16 0600 Signed Impressions: Service Date/Time: Thursday, September 22, 2016 05:44 - CONCLUSION: 1. Consolidative opacity remains in the right lateral midlung. 2. Right hazy opacity is present in left perihilar region and left lung base without significant change. Osmel Chung MD Lower Extremity Ultrasound 09/21/16 0000 Signed Impressions: Service Date/Time: Wednesday, September 21, 2016 14:45 - CONCLUSION: No deep venous thrombosis in either lower extremity. Darian Roldan MD Chest CT 09/20/16 0000 Signed Impressions: Service Date/Time: Tuesday, September 20, 2016 12:18 - CONCLUSION: 1. Large areas of dense consolidation most characteristic of pneumonia. 2. Mild cardiomegaly. Osmel Chung MD Assessment and Plan Problem List: (1) Non-ST elevated myocardial infarction Assessment and Plan: Likely due to PNA, but w/ continued cp (also likely from pna), nuc stress when respiratory stable. (2) Acute respiratory failure with hypoxia (3) Lactic acid acidosis Abe Man MD Sep 24, 2016 07:47
[2016-09-24] MEDS: RESP: ALBUTEROL 2.5 MG/IPRATROPIUM 0.5 MG NEB (SCH) NEB ×4 (08:02→19:23)
--- NOTE | 2016-09-24 08:15 | HHI.PR ---
Subjective Remarks Follow up respiratory failure, pneumonia. Still having intermittent chest pain in the center of his chest. Shortness of breath is about the same. Has been having diarrhea. Objective Vitals Vital Signs Date Time Temp Pulse Resp B/P Pulse Ox O2 Delivery O2 Flow Rate FiO2 09/24/16 08:04 97 Nasal Cannula 3.00 09/24/16 06:01 60 26 153/72 98 09/24/16 06:00 51 09/24/16 05:01 60 25 140/69 97 09/24/16 04:01 98.4 60 29 148/76 97 09/24/16 04:00 98.7 64 27 148/76 97 09/24/16 04:00 62 09/24/16 03:01 62 24 137/70 98 09/24/16 02:01 60 25 149/71 98 09/24/16 02:00 62 09/24/16 01:01 68 21 144/72 97 09/24/16 00:01 98.4 78 36 156/77 95 09/24/16 00:00 72 09/23/16 22:01 64 24 144/66 97 09/23/16 22:00 65 09/23/16 21:01 72 38 149/72 96 09/23/16 20:01 98.2 70 21 156/89 97 09/23/16 20:00 65 09/23/16 19:55 96 Nasal Cannula 3.00 09/23/16 19:01 74 0 175/81 95 09/23/16 19:00 Nasal Cannula 4.00 09/23/16 18:15 70 35 95 09/23/16 18:01 68 36 140/71 96 09/23/16 18:00 66 37 95 09/23/16 18:00 67 09/23/16 17:01 64 36 144/71 94 09/23/16 17:00 66 37 94 09/23/16 16:15 92 09/23/16 16:01 68 32 152/70 95 09/23/16 16:00 98.1 68 38 95 09/23/16 16:00 66 09/23/16 15:45 70 31 99 09/23/16 15:30 68 33 96 09/23/16 15:15 68 38 97 09/23/16 15:01 64 38 149/65 97 12/28/16 15:00 66 24 98 09/23/16 14:01 68 22 142/83 96 09/23/16 14:00 74 30 96 09/23/16 14:00 68 09/23/16 13:15 70 30 95 09/23/16 13:00 98.4 76 32 172/79 93 09/23/16 12:00 69 09/23/16 11:30 74 19 98 09/23/16 11:15 74 30 97 09/23/16 11:00 70 24 131/60 95 09/23/16 10:00 91 09/23/16 10:00 98 31 179/76 95 09/23/16 09:00 84 43 95 I/O 09/23/16 09/23/16 09/23/16 09/24/16 09/24/16 09/24/16 07:00 15:00 23:00 07:00 15:00 23:00 Intake Total 937 ml 170 ml 1060 ml Output Total 450 ml 1600 ml 400 ml Balance -450 ml -663 ml 170 ml 660 ml Intake Oral 450 ml 120 ml 360 ml IV Total 487 ml 50 ml 700 ml Output Urine Total 450 ml 1600 ml 400 ml # Voids 2 2 # Bowel Movements 2 0 0 Result Diagram: 09/24/16 0425 09/24/16 0425 Imaging Last Impressions Chest X-Ray 09/22/16 0600 Signed Impressions: Service Date/Time: Thursday, September 22, 2016 05:44 - CONCLUSION: 1. Consolidative opacity remains in the right lateral midlung. 2. Right hazy opacity is present in left perihilar region and left lung base without significant change. Osmel Chung MD Lower Extremity Ultrasound 09/21/16 0000 Signed Impressions: Service Date/Time: Wednesday, September 21, 2016 14:45 - CONCLUSION: No deep venous thrombosis in either lower extremity. Darian Roldan MD Chest CT 09/20/16 0000 Signed Impressions: Service Date/Time: Tuesday, September 20, 2016 12:18 - CONCLUSION: 1. Large areas of dense consolidation most characteristic of pneumonia. 2. Mild cardiomegaly. Osmel Chung MD Objective Remarks General: No acute distress. Heart: Regular rate and rhythm. No murmur. Lungs: Clear to auscultation bilaterally. No wheezes, rales, or rhonchi. Breathing is nonlabored. Abdomen: Soft, nontender, nondistended. Extremities: 1+ bilateral lower extremity edema. Psych: Alert and oriented. Procedures None Urinary Catheter: No Vascular Central Line Catheter: No A/P Problem List: (1) Sepsis with multi-organ dysfunction ICD Code: A41.9 Status: Resolved (2) Septic shock ICD Code: A41.9 Status: Resolved (3) Adult respiratory distress syndrome ICD Code: J80 Status: Resolved (4) Acute respiratory failure with hypoxia ICD Code: J96.01 Status: Resolved (5) Bilateral pneumonia ICD Code: J18.9 Status: Acute (6) Hypotension ICD Code: I95.9 Status: Acute (7) Lactic acid acidosis ICD Code: E87.2 Status: Resolved (8) Non-ST elevated myocardial infarction ICD Code: I21.4 Status: Acute (9) Elevated CPK ICD Code: R74.8 Status: Acute (10) Troponin level elevated ICD Code: R79.89 Status: Acute (11) Acute renal failure ICD Code: N17.9 Status: Acute (12) Diabetes ICD Code: E11.9 Status: Chronic (13) Hyperlipidemia ICD Code: E78.5 Status: Chronic Assessment and Plan 1. Acute hypoxic respiratory failure: Improved. Patient extubated and now tolerating oxygen per nasal cannula. Continue DuoNeb. Taper steroids. 2. Septic shock: Resolved. Continue antibiotics. 3. Pneumonia: Possible aspiration. Continue antibiotics, oxygen. 4. Non-ST elevation NH: Troponin mildly elevated. Appreciate cardiology recommendations. Chest pain likely due to pneumonia, but patient does have risk factors. Lexiscan ordered. Family does not want test done today. Continue aspirin, Lovenox. Beta donna and nitroglycerin had been on hold secondary to hypotension. Continue Coreg. 5. Mild acute protein calorie malnutrition: Encourage oral intake. 6. Acute kidney injury: Improving. 7. Diabetes mellitus type 2: Chronic. Monitor Accu-Cheks and cover with sliding scale insulin. Continue Levemir. 8. DVT prophylaxis: Lovenox. 9. GI prophylaxis: Pepcid. 10. Bacteremia: Blood cultures positive for strep pneumoniae. Repeat blood cultures are negative so far. Continue antibiotics. 11. Hypokalemia: Improved. Supplement per electrolyte protocol. 12. CODE STATUS: Full code. 13. Diarrhea: Send stool for c. diff testing. Problem Qualifiers (1) Bilateral pneumonia: Qualified Code: J18.9 - Pneumonia of both lungs due to infectious organism, unspecified part of lung (2) Hypotension: Qualified Code: I95.9 - Hypotension, unspecified hypotension type (3) Acute renal failure: Qualified Code: N17.9 - Acute renal failure, unspecified acute renal failure type (4) Diabetes: Qualified Code: E11.8 - Type 2 diabetes mellitus with complication, with long- term current use of insulin (5) Hyperlipidemia: Qualified Code: E78.5 - Hyperlipidemia, unspecified hyperlipidemia type Mt Mathew MD Sep 24, 2016 08:15
[2016-09-24] MEDS: SODIUM CHLORIDE 0.9% FLUSH 5 ML FLUSH IV FLUSH SCH ×2 (09:00→20:34)
[2016-09-24] MEDS: ASPIRIN EC 325 MG TABEC PO SCH (10:27)
[2016-09-24] MEDS: FAMOTIDINE 20 MG TAB PO SCH ×2 (10:28→20:34)
[2016-09-24] MEDS: CARVEDILOL 3.125 MG TAB PO SCH ×2 (10:28→20:34)
[2016-09-24] MEDS ORDERED: VANCOMYCIN TROUGH XX ONE (11:45)
[2016-09-24 13:29] LABS: C. DIFF EPI 027 PRESUMPTIVE NEGATIVE (NEGATIVE); C. DIFF TOXIN PCR NEGATIVE (NEGATIVE)
[2016-09-24] MEDS: INSULIN DETEMIR 100 UNITS/ML VIAL SQ SCH (20:41)
[2016-09-25] VITALS (37 sets, daily range): BP systolic 138–187; BP diastolic 62–86; PULSE 48–76; RESP 18–33; TEMP 97.2–98.6; O2SAT 92–97
[2016-09-25] MEDS: PIPERACIL-TAZO 3.375 GM PREMIX 50 ML IV SCH ×3 (01:42→14:09)
[2016-09-25] MEDS: RESP: ALBUTEROL 2.5 MG/IPRATROPIUM 0.5 MG NEB (PRN) INH ×2 (02:13→04:37)
[2016-09-25] MEDS ORDERED: DEXTROSE 50% IN WATER 50 ML SYRINGE ONE (02:52)
[2016-09-25] MEDS: INSULIN NovoLIN REGULAR SUPPLEMENTAL SCALE SQ SCH ×5 (02:56→21:19)
[2016-09-25] MEDS: CHLORHEXIDINE GLUCONATE 2 % 1 PACK (2 CLOTHS) TOP SCH ×2 (02:56→19:34)
[2016-09-25 04:59] LABS: MEAN CELL VOLUME 96.8 FL (80.0-100.0); MEAN CORPUSCULAR HEMOGLOBIN 32.2 PG (27.0-34.0); MEAN CORPUSCULAR HGB CONC 33.3 % (32.0-36.0); PLATELET COUNT 122 TH/MM3 (150-450); RED BLOOD COUNT 3.72 MIL/MM3 (4.50-5.90); RED CELL DISTRIBUTION WIDTH 13.6 % (11.6-17.2); REVIEW FLAG FINAL; WHITE BLOOD COUNT 14.1 TH/MM3 (4.0-11.0)
[2016-09-25] MEDS ORDERED: methylPREDNISolone SOD SUCC 125 MG/2 ML VIAL IV PUSH ONE (05:00)
[2016-09-25 05:04] LABS: BLOOD GAS BASE EXCESS 2.4 mmol/L (-2-2); BLOOD GAS CARBOXYHEMOGLOBIN 1.7 % (0-4); BLOOD GAS HCO3 26 mmol/L (22-26); BLOOD GAS METHEMOGLOBIN 0.6 % (0-2); BLOOD GAS O2 HGB SATURATION 94 % (90-100); BLOOD GAS OXYGEN CONTENT 14.7 Vol % (12.0-20.0); BLOOD GAS PCO2 40 mmHg (38-42); BLOOD GAS PO2 75 mmHg (61-120); BLOOD GAS TOTAL HGB 11.1 G/DL (12.0-16.0)
[2016-09-25 05:04] LABS: POTASSIUM 3.7 MEQ/L (3.5-5.1)
[2016-09-25 05:05] LABS: CRITICAL VALUE NO; DRAW SITE RT RADIAL; LITER FLOW 5 L/M; NUMBER OF ARTERIAL PUNCTURES 1; OXYGEN DEVICE NASAL CANNULA; STAT YES; ULNAR PULSE PRESENT
[2016-09-25 05:07] LABS: BICARBONATE 27.7 MEQ/L (21.0-32.0)
[2016-09-25] MEDS: ENOXAPARIN SODIUM 60 MG/0.6 ML SYRINGE SQ SCH ×2 (05:10→16:58)
[2016-09-25] MEDS: RESP: ALBUTEROL 2.5 MG/IPRATROPIUM 0.5 MG NEB (SCH) NEB ×4 (07:41→19:27)
--- NOTE | 2016-09-25 07:57 | PD.CARD.PN ---
Subjective Subjective Remarks Pt had a bit more sob o/n w/ weakness, still continued mild central cp. Objective Medications Administered Medications Medications (Trade) Dose Ordered Sig/Monica Route PRN Reason Start Time Stop Time Status Last Admin Dose Admin Potassium Chloride (KCl 20 Meq Premix Inj) 100 ml @ 50 mls/hr Q2H PRN IV For Potassium 2.8 - 3.2 mEq/L 09/20/16 12:45 09/22/16 09:29 Potassium Chloride (KCl 40 Meq/30 ml Liq) 40 meq UNSCH PRN PO/TUBE For Potassium 3.3 - 3.5 mEq/L 09/20/16 12:45 09/22/16 22:56 IV Flush (NS Flush) 2 ml BID IV FLUSH 09/20/16 21:00 09/24/16 20:34 Miscellaneous Information 1 [id number] XX 09/20/16 12:45 09/20/16 12:45 Chlorhexidine Gluconate (Chlorhexidine 2% Cloth) 3 pack Taper DAILY@04 TOP 09/21/16 04:00 09/17/17 03:59 09/25/16 02:56 Aspirin 325 mg 325 mg DAILY PO 09/20/16 16:30 09/24/16 10:27 Piperacillin Sod/ Tazobactam Sod (Zosyn 3.375 Gm Premix) 50 ml @ 100 mls/hr Q6H IV 09/20/16 20:00 09/25/16 01:42 Enoxaparin Sodium (Lovenox Inj) 45 mg Q12H SQ 09/21/16 06:00 09/25/16 05:10 Dextrose (D50w (Vial) Inj) 25 ml UNSCH PRN IV PUSH HYPOGLYCEMIA-SEE COMMENTS 09/22/16 07:00 09/25/16 02:50 Famotidine (Pepcid) 10 mg BID PO 09/22/16 21:00 09/24/16 20:34 Insulin Detemir (Levemir Inj) 30 units HS SQ 09/23/16 21:00 09/24/16 20:41 Carvedilol 3.125 mg 3.125 mg Q12HR PO 09/23/16 09:00 09/24/16 20:34 Vancomycin HCl/ Sodium Chloride (Vancomycin Inj/ NS 500 ml Inj) 514 ml @ 250 mls/hr Q18H IV 09/24/16 06:00 09/24/16 23:50 Vital Signs / I&O Vital Signs Date Time Temp Pulse Resp B/P Pulse Ox O2 Delivery O2 Flow Rate FiO2 09/25/16 07:41 96 Nasal Cannula 3.00 09/25/16 06:01 60 18 169/75 97 09/25/16 06:00 53 09/25/16 05:05 96 Bi-Pap 35 09/25/16 05:01 66 33 186/82 96 09/25/16 05:00 96 35 09/25/16 04:01 97.5 60 26 152/75 95 09/25/16 04:00 76 09/25/16 03:01 66 29 178/76 94 09/25/16 02:01 60 27 174/83 96 09/25/16 02:00 66 09/25/16 01:01 58 28 180/85 95 09/25/16 00:01 97.5 58 26 160/84 96 09/25/16 00:00 75 09/24/16 23:28 58 28 157/77 96 09/24/16 23:01 58 22 152/76 95 09/24/16 22:00 98.4 66 31 141/69 95 09/24/16 22:00 59 09/24/16 21:01 64 30 149/68 93 09/24/16 20:01 98.4 62 30 141/67 92 09/24/16 20:00 62 09/24/16 19:23 94 Nasal Cannula 2.00 09/24/16 19:01 62 26 155/72 94 09/24/16 19:00 93 Nasal Cannula 1.50 09/24/16 18:07 65 09/24/16 18:00 62 20 147/72 93 09/24/16 17:00 58 31 145/72 94 09/24/16 16:00 65 09/24/16 16:00 98.4 54 20 138/71 97 09/24/16 15:00 64 35 149/83 95 09/24/16 14:47 58 09/24/16 14:00 62 35 134/68 94 09/24/16 13:18 62 22 130/58 97 09/24/16 12:35 98.1 09/24/16 12:33 98.1 70 30 142/61 94 09/24/16 11:30 68 28 93 09/24/16 11:20 95 Nasal Cannula 2.00 09/24/16 11:06 66 09/24/16 10:12 64 32 139/60 94 09/24/16 09:01 64 35 142/66 91 09/24/16 08:04 97 Nasal Cannula 3.00 09/24/16 08:01 98.8 66 29 164/82 96 I/O 09/24/16 09/24/16 09/24/16 09/25/16 09/25/16 09/25/16 06:59 14:59 22:59 06:59 14:59 22:59 Intake Total 1060 ml 1400 ml 170 ml 610 ml Output Total 400 ml 475 ml 600 ml Balance 660 ml 925 ml 170 ml 10 ml Intake Oral 360 ml 750 ml 120 ml 60 ml IV Total 700 ml 650 ml 50 ml 550 ml Output Urine Total 400 ml 475 ml 600 ml Bladder Scan Volume Amount 13 ml # Voids 5 1 # Bowel Movements 0 3 1 0 Physical Exam GENERAL: This is a well-nourished, well-developed patient, in no apparent distress. CARDIOVASCULAR: Regular rate and rhythm without murmurs, gallops, or rubs. RESPIRATORY: Decreased breath sounds at the base. GASTROINTESTINAL: Abdomen soft, non-tender, nondistended. Normal active bowel sounds MUSCULOSKELETAL: Extremities without clubbing, cyanosis, or edema. NEURO: Alert & Oriented x4 to person, place, time, situation. Moves all ext x4 Laboratory Laboratory Tests Test 09/24/16 09/25/16 09/25/16 08:45 04:40 04:55 Stool C. difficile Toxin (PCR) NEGATIVE Stl C. difficile Toxin PRESUMPTIVE Epiderm 027 NEGATIVE White Blood Count 14.1 TH/MM3 Red Blood Count 3.72 MIL/MM3 Hemoglobin 12.0 GM/DL Hematocrit 36.0 % Mean Corpuscular Volume 96.8 FL Mean Corpuscular Hemoglobin 32.2 PG Mean Corpuscular Hemoglobin 33.3 % Concent Red Cell Distribution Width 13.6 % Platelet Count 122 TH/MM3 Mean Platelet Volume 10.0 FL Sodium Level 150 MEQ/L Potassium Level 3.7 MEQ/L Chloride Level 114 MEQ/L Carbon Dioxide Level 27.7 MEQ/L Anion Gap 8 MEQ/L Blood Urea Nitrogen 35 MG/DL Creatinine 1.00 MG/DL Estimat Glomerular Filtration 73 ML/MIN Rate Random Glucose 111 MG/DL Calcium Level 8.3 MG/DL Blood Gas Puncture Site RT RADIAL Blood Gas Patient Temperature 37.0 Blood Gas HCO3 26 mmol/L Blood Gas Base Excess 2.4 mmol/L Blood Gas Oxygen Saturation 94 % Arterial Blood pH 7.44 Arterial Blood Partial 40 mmHg Pressure CO2 Arterial Blood Partial 75 mmHg Pressure O2 Arterial Blood Oxygen Content 14.7 Vol % Arterial Blood 1.7 % Carboxyhemoglobin Arterial Blood Methemoglobin 0.6 % Blood Gas Hemoglobin 11.1 G/DL Oxygen Delivery Device NASAL CANNULA Blood Gas Liter Flow 5 L/M Imaging Last Impressions Chest X-Ray 09/22/16 0600 Signed Impressions: Service Date/Time: Thursday, September 22, 2016 05:44 - CONCLUSION: 1. Consolidative opacity remains in the right lateral midlung. 2. Right hazy opacity is present in left perihilar region and left lung base without significant change. Osmel Chung MD Lower Extremity Ultrasound 09/21/16 0000 Signed Impressions: Service Date/Time: Wednesday, September 21, 2016 14:45 - CONCLUSION: No deep venous thrombosis in either lower extremity. Darian Roldan MD Chest CT 09/20/16 0000 Signed Impressions: Service Date/Time: Tuesday, September 20, 2016 12:18 - CONCLUSION: 1. Large areas of dense consolidation most characteristic of pneumonia. 2. Mild cardiomegaly. Osmel Chung MD Assessment and Plan Problem List: (1) Non-ST elevated myocardial infarction Assessment and Plan: Likely due to PNA, but w/ continued cp (also likely from pna), nuc stress when respiratory stable if family agrees; they currently decline and would like to get done in home state of [place] and they understand possible risks involved with this plan. (2) Acute respiratory failure with hypoxia Assessment and Plan: extubated but worse sob last night, doing better this am. (3) Lactic acid acidosis (4) Bilateral pneumonia Assessment and Plan: Per medical team. Assessment and Plan One of my partners will be available as needed over the weekend, nursing is aware to re-order nuclear stress if family decides to proceed with the test. Problem Qualifiers (1) Bilateral pneumonia: Qualified Code: J18.9 - Pneumonia of both lungs due to infectious organism, unspecified part of lung Abe Man MD Sep 25, 2016 07:57
--- NOTE | 2016-09-25 08:34 | HHI.PR ---
Subjective Remarks Follow-up pneumonia, respiratory failure. Patient had worsening shortness of breath overnight. He was placed back on BiPAP. He is feeling better now, but does get short of breath with any activity, including going to the commode. Continues to have the same chest pain. Objective Vitals Vital Signs Date Time Temp Pulse Resp B/P Pulse Ox O2 Delivery O2 Flow Rate FiO2 09/25/16 07:41 96 Nasal Cannula 3.00 09/25/16 06:01 60 18 169/75 97 09/25/16 06:00 53 09/25/16 05:05 96 Bi-Pap 35 09/25/16 05:01 66 33 186/82 96 09/25/16 05:00 96 35 09/25/16 04:01 97.5 60 26 152/75 95 09/25/16 04:00 76 09/25/16 03:01 66 29 178/76 94 09/25/16 02:01 60 27 174/83 96 09/25/16 02:00 66 09/25/16 01:01 58 28 180/85 95 09/25/16 00:01 97.5 58 26 160/84 96 09/25/16 00:00 75 09/24/16 23:28 58 28 157/77 96 09/24/16 23:01 58 22 152/76 95 09/24/16 22:00 98.4 66 31 141/69 95 09/24/16 22:00 59 09/24/16 21:01 64 30 149/68 93 09/24/16 20:01 98.4 62 30 141/67 92 09/24/16 20:00 62 09/24/16 19:23 94 Nasal Cannula 2.00 09/24/16 19:01 62 26 155/72 94 09/24/16 19:00 93 Nasal Cannula 1.50 09/24/16 18:07 65 09/24/16 18:00 62 20 147/72 93 09/24/16 17:00 58 31 145/72 94 09/24/16 16:00 65 09/24/16 16:00 98.4 54 20 138/71 97 09/24/16 15:00 64 35 149/83 95 09/24/16 14:47 58 09/24/16 14:00 62 35 134/68 94 09/24/16 13:18 62 22 130/58 97 09/24/16 12:35 98.1 09/24/16 12:33 98.1 70 30 142/61 94 09/24/16 11:30 68 28 93 09/24/16 11:20 95 Nasal Cannula 2.00 09/24/16 11:06 66 09/24/16 10:12 64 32 139/60 94 09/24/16 09:01 64 35 142/66 91 I/O 09/24/16 09/24/16 09/24/16 09/25/16 09/25/16 09/25/16 07:00 15:00 23:00 07:00 15:00 23:00 Intake Total 1060 ml 1400 ml 170 ml 610 ml Output Total 400 ml 475 ml 600 ml Balance 660 ml 925 ml 170 ml 10 ml Intake Oral 360 ml 750 ml 120 ml 60 ml IV Total 700 ml 650 ml 50 ml 550 ml Output Urine Total 400 ml 475 ml 600 ml Bladder Scan Volume Amount 13 ml # Voids 5 1 # Bowel Movements 0 3 1 0 Result Diagram: 09/25/16 0440 09/25/16 0440 Imaging Last Impressions Chest X-Ray 09/22/16 0600 Signed Impressions: Service Date/Time: Thursday, September 22, 2016 05:44 - CONCLUSION: 1. Consolidative opacity remains in the right lateral midlung. 2. Right hazy opacity is present in left perihilar region and left lung base without significant change. Osmel Chung MD Lower Extremity Ultrasound 09/21/16 0000 Signed Impressions: Service Date/Time: Wednesday, September 21, 2016 14:45 - CONCLUSION: No deep venous thrombosis in either lower extremity. Darian Roldan MD Chest CT 09/20/16 0000 Signed Impressions: Service Date/Time: Tuesday, September 20, 2016 12:18 - CONCLUSION: 1. Large areas of dense consolidation most characteristic of pneumonia. 2. Mild cardiomegaly. Osmel Chung MD Objective Remarks General: No acute distress. Heart: Regular rate and rhythm. No murmur. Lungs: Clear to auscultation bilaterally. No wheezes, rales, or rhonchi. Breathing is nonlabored. Abdomen: Soft, nontender, nondistended. Extremities: 1+ bilateral lower extremity edema. Psych: Alert and oriented. HEENT: Scabbed lesions on lower lip and chin. Procedures None Urinary Catheter: No Vascular Central Line Catheter: No A/P Problem List: (1) Sepsis with multi-organ dysfunction ICD Code: A41.9 Status: Resolved (2) Septic shock ICD Code: A41.9 Status: Resolved (3) Adult respiratory distress syndrome ICD Code: J80 Status: Resolved (4) Acute respiratory failure with hypoxia ICD Code: J96.01 Status: Acute (5) Bilateral pneumonia ICD Code: J18.9 Status: Acute (6) Hypotension ICD Code: I95.9 Status: Acute (7) Lactic acid acidosis ICD Code: E87.2 Status: Resolved (8) Non-ST elevated myocardial infarction ICD Code: I21.4 Status: Acute (9) Elevated CPK ICD Code: R74.8 Status: Acute (10) Troponin level elevated ICD Code: R79.89 Status: Acute (11) Acute renal failure ICD Code: N17.9 Status: Acute (12) Diabetes ICD Code: E11.9 Status: Chronic (13) Hyperlipidemia ICD Code: E78.5 Status: Chronic Assessment and Plan 1. Acute hypoxic respiratory failure: Patient extubated and now tolerating oxygen per nasal cannula. Continue DuoNeb. Restart steroids. Patient had worsening dyspnea overnight and was placed back on BiPAP temporarily. Now back on nasal cannula. Consult pulmonology. 2. Septic shock: Resolved. Continue antibiotics. 3. Pneumonia: Possible aspiration. Continue antibiotics, oxygen. 4. Non-ST elevation [place]: Troponin mildly elevated. Appreciate cardiology recommendations. Chest pain likely due to pneumonia, but patient does have risk factors. Lexiscan ordered. Family does not want test done at this time. Continue aspirin, Lovenox. Beta donna and nitroglycerin had been on hold secondary to hypotension. Continue Coreg. 5. Mild acute protein calorie malnutrition: Encourage oral intake. 6. Acute kidney injury: Improving. 7. Diabetes mellitus type 2: Chronic. Monitor Accu-Cheks and cover with sliding scale insulin. Continue Levemir. Glucose was low this morning. 8. DVT prophylaxis: Lovenox. 9. GI prophylaxis: Pepcid. 10. Bacteremia: Blood cultures positive for strep pneumoniae. Repeat blood cultures are negative so far. Continue antibiotics. 11. Hypokalemia: Improved. Supplement per electrolyte protocol. 12. CODE STATUS: Full code. 13. Diarrhea: C. difficile negative. Problem Qualifiers (1) Bilateral pneumonia: Qualified Code: J18.9 - Pneumonia of both lungs due to infectious organism, unspecified part of lung (2) Hypotension: Qualified Code: I95.9 - Hypotension, unspecified hypotension type (3) Acute renal failure: Qualified Code: N17.9 - Acute renal failure, unspecified acute renal failure type (4) Diabetes: Qualified Code: E11.8 - Type 2 diabetes mellitus with complication, with long- term current use of insulin (5) Hyperlipidemia: Qualified Code: E78.5 - Hyperlipidemia, unspecified hyperlipidemia type Mt Mathew MD Sep 25, 2016 08:34
[2016-09-25] MEDS: CARVEDILOL 3.125 MG TAB PO SCH ×2 (08:50→20:24)
[2016-09-25] MEDS: SODIUM CHLORIDE 0.9% FLUSH 5 ML FLUSH IV FLUSH SCH ×2 (08:50→20:24)
[2016-09-25] MEDS: ASPIRIN EC 325 MG TABEC PO SCH (08:50)
[2016-09-25] MEDS: FAMOTIDINE 20 MG TAB PO SCH ×2 (08:50→20:24)
--- NOTE | 2016-09-25 09:09 | RADHPO ---
EXAM DATE/TIME: 09/25/2016 08:30 [facility] COMPARISON: CHEST SINGLE AP, September 22, 2016, 5:44. INDICATIONS : Short of breath. MEDICAL HISTORY : None. SURGICAL HISTORY : None. ENCOUNTER: Subsequent ACUITY: 4 - 6 days PAIN SCORE: 7/10 LOCATION: Bilateral upper chest FINDINGS: Opacity airspace disease in the right midlung field persist minimally improved with a stable area of density off the left suprahilar region. ET tube and nasogastric tube have been removed. CONCLUSION: Essentially stable pulmonary opacity infiltrates Evan Short MD on September 25, 2016 at 9:07 Board Certified Radiologist. This report was verified electronically.
[2016-09-25] MEDS: ACYCLOVIR 5% OINT 5 APPLIC/5 GM TUBE TOP SCH ×4 (10:00→20:25)
[2016-09-25] MEDS: methylPREDNISolone SOD SUCC 40 MG/1 ML VIAL IV PUSH SCH ×3 (12:44→23:42)
[2016-09-25] MEDS: VANCOMYCIN INJ 1,400 MG in SODIUM CHLORID 0.9% 500 ML INJ 500 ML IV SCH (16:57)
[2016-09-25] MEDS: cefTRIAXone INJ 2,000 MG in SODIUM CHLORIDE 0.9% INJ 100 ML IV SCH (20:24)
[2016-09-25] MEDS: INSULIN DETEMIR 100 UNITS/ML VIAL SQ SCH (20:25)
--- NOTE | 2016-09-25 20:54 | MB ---
cc: REBECCA WILKINSON MD DATE OF CONSULTATION 09/25/[address] Mathew REASON FOR CONSULTATION Pneumonia HISTORY OF PRESENT ILLNESS Mr. Santiago is a 70-year-old male from [place]. He has history of hypertension and diabetes mellitus. He drove with his daughter from [place]. He started having fever and chills, was feeling weak. He presented to the hospital here and was found to have pneumonia. He was initially treated with BiPap and required ventilator support, now has been extubated. He was on Levophed which has been weaned off. He had a blood culture done which shows streptococcal pneumonia to which he is salas sensitive. His CT scan of the chest shows he has large area of dense consolidation, most consistent with pneumonia. His WBC count is 14.1, hemoglobin 12, hematocrit 36.0, MCV 96 platelet count 122. Sodium 150, potassium 3.7, chloride 114, CO2 27, BUN 35, creatinine 1.0, INR is 1.3. His blood gas on 5 liters nasal cannula pH 7.44, pCO2 40, pO2 75, bicarb 26/ PAST MEDICAL HISTORY 1. History of hypertension, 2. Diabetes mellitus, 3. Elevated CPK and troponin MEDICATIONS Currently taking 1. Vancomycin. 2. Zosyn 3. Solu-Medrol 40 mg q. 6-hour. 4. Insulin 25 units. 5. Acyclovir five times a day locally. 6. Albuterol/Atrovent nebulizer treatment. 7. Coreg 3.125 mg q.12 h. 8. Famotidine 20 mg a day. 9. Oxycodone for pain. 10. Lovenox 45 mg q. 12-hour. ALLERGIES NO KNOWN DRUG ALLERGIES. SOCIAL HISTORY He has no history of smoking or alcohol use. He worked as a preacher and a high school professional. FAMILY HISTORY He is a . He has four children. REVIEW OF SYSTEMS Normally he is up, around and active. No history of DVT, pulmonary embolism. No prior heart disease. No seizure, stroke or epilepsy. PHYSICAL EXAMINATION GENERAL: Well-built, well-nourished male mild short of breath. VITAL SIGNS: Blood pressure 149/72, heart rate 54, respirations 29, temperature 98.3 HEENT: Pupils are equal and reactive to light. Oral mucosa, nasal mucosa normal. NECK: Supple. JVP not raised. CHEST: Equal air entry bilaterally. He has rales on the left side. Rales at bases. CARDIOVASCULAR: S1, S2 normal. ABDOMEN: Benign. EXTREMITIES: No edema. IMPRESSION 1. Pneumococcal bacteremia 2. Bilateral pneumonia 3. Respiratory failure status post extubation 4. Diabetes mellitus 5. Hypertension. PLAN His cultures showed that he has salas sensitivity to strep pneumo infection. I will discontinue Zosyn and vancomycin start, him on Rocephin 2 grams daily. Continue IV steroid, aerosol treatment. Oxygen 5 liters nasal cannula. Monitor his blood sugar. He is on Lovenox. further treatment will depend on the course in the hospital. Thank you Dr. Mathew for this consultation. MD MARYAM Velasco/ /6:41 PM /8:28 PM
[2016-09-26] VITALS (33 sets, daily range): BP systolic 109–192; BP diastolic 41–86; PULSE 42–70; RESP 15–36; TEMP 97.3–98.1; O2SAT 89–98
[2016-09-26] MEDS: INSULIN NovoLIN REGULAR SUPPLEMENTAL SCALE SQ SCH ×5 (03:00→20:39)
[2016-09-26] MEDS: ENOXAPARIN SODIUM 60 MG/0.6 ML SYRINGE SQ SCH ×2 (05:40→18:29)
[2016-09-26] MEDS: methylPREDNISolone SOD SUCC 40 MG/1 ML VIAL IV PUSH SCH ×4 (05:40→23:23)
[2016-09-26] MEDS: ACYCLOVIR 5% OINT 5 APPLIC/5 GM TUBE TOP SCH ×5 (05:40→20:36)
[2016-09-26 06:27] LABS: AUTOMATED NEUTROPHIL # 6.6 TH/MM3 (1.8-7.7); BASOPHIL # 0.1 TH/MM3 (0-0.2); BASOPHIL % 0.7 % (0.0-2.0); EOSINOPHIL % 0.1 % (0.0-4.0); HEMATOCRIT 33.6 % (39.0-51.0); LYMPH % 6.7 % (9.0-44.0); LYMPHOCYTE # 0.5 TH/MM3 (1.0-4.8); MEAN CELL VOLUME 97.5 FL (80.0-100.0); MEAN CORPUSCULAR HEMOGLOBIN 31.8 PG (27.0-34.0); MEAN CORPUSCULAR HGB CONC 32.6 % (32.0-36.0); MONO % 3.1 % (0.0-8.0); NEUT % 89.4 % (16.0-70.0); PLATELET COUNT 82 TH/MM3 (150-450); RED BLOOD COUNT 3.44 MIL/MM3 (4.50-5.90); RED CELL DISTRIBUTION WIDTH 13.3 % (11.6-17.2); WHITE BLOOD COUNT 7.4 TH/MM3 (4.0-11.0)
[2016-09-26 06:28] LABS: HEMO FLAGS AUTO DIFF
[2016-09-26 06:37] LABS: POTASSIUM 3.9 MEQ/L (3.5-5.1)
[2016-09-26 06:41] LABS: MAGNESIUM 2.5 MG/DL (1.5-2.5)
[2016-09-26 07:31] LABS: PLATELET ESTIMATE SMEAR LOW (NORMAL); PLATELET MORPHOLOGY NORMAL (NORMAL); SCAN/DIFF AUTO DIFF CONFIRMED
[2016-09-26] MEDS: RESP: ALBUTEROL 2.5 MG/IPRATROPIUM 0.5 MG NEB (SCH) NEB ×4 (07:40→19:14)
[2016-09-26] MEDS: SODIUM CHLORIDE 0.9% FLUSH 5 ML FLUSH IV FLUSH SCH ×2 (08:42→20:37)
[2016-09-26] MEDS ORDERED: REGADENOSON INJ 0.4 MG/5 ML SYR IV ONE (09:16)
[2016-09-26] MEDS: CARVEDILOL 3.125 MG TAB PO SCH ×2 (10:14→20:38)
[2016-09-26] MEDS: ASPIRIN EC 325 MG TABEC PO SCH (10:14)
[2016-09-26] MEDS: FAMOTIDINE 20 MG TAB PO SCH ×2 (10:15→20:38)
--- NOTE | 2016-09-26 10:31 | RADHPO ---
EXAM DATE/TIME: 09/26/2016 09:22 [facility] COMPARISON: CHEST SINGLE AP, September 25, 2016, 8:30. INDICATIONS : Midsternal chest pain for one day. Angina. DOSE: 25.5 mCi Tc99m Myoview at stress. 8.7 mCi Tc99m Myoview at rest. 0.4 mg Lexiscan STRESS SYMPTOMS: Shortness of breath and lightheaded. EJECTION FRACTION: 59% MEDICAL HISTORY : Hypertension. Diabetes mellitus type 2. Hypercholesterolemia. SURGICAL HISTORY : Back surgery and stimulator implant. ENCOUNTER: Initial ACUITY: 1 day PAIN SCALE: 4/10 LOCATION: Midsternal chest TECHNIQUE: The patient underwent pharmacologic stress with infusion of prescribed dose. Continuous ECG tracing was monitored during stress. Gated SPECT imaging was performed after stress and conventional SPECT i maging was performed at rest. The examination was performed on a SPECT/CT scanner, both attenuation and non-corrected datasets were reviewed. FINDINGS: DISTRIBUTION: The maximum perfused segment at stress is in the septal wall. PERFUSION STUDY: The pattern of perfusion at stress is within normal limits. GATED STUDY: There is intact wall motion and thickening without hypokinetic or dyskinetic segments. CONCLUSION: No definite reversible perfusion defects are identified to suggest stress-induced myocardial ischemia . RISK CATEGORY: Low (<1% Annual Mortality Rate) Quentin Fuentes MD on September 26, 2016 at 10:27 Board Certified Radiologist. This report was verified electronically.
--- NOTE | 2016-09-26 10:50 | HHI.PR ---
Subjective Remarks Follow-up pneumonia, respiratory failure. Patient states that he is feeling better today. No chest pain. Still with some dyspnea. Had nuclear stress test done this morning. Wants to be discharged home soon with home oxygen. Objective Vitals Vital Signs Date Time Temp Pulse Resp B/P Pulse Ox O2 Delivery O2 Flow Rate FiO2 09/26/16 10:19 58 23 164/60 94 09/26/16 10:07 62 19 180/67 89 09/26/16 09:00 48 22 149/62 92 09/26/16 08:00 97.7 50 22 161/73 97 09/26/16 07:43 96 Nasal Cannula 3.00 09/26/16 07:00 46 15 143/63 92 09/26/16 06:00 54 18 151/76 94 09/26/16 06:00 49 09/26/16 05:00 97.6 51 24 178/74 94 09/26/16 04:00 60 09/26/16 04:00 98.1 60 20 169/77 94 09/26/16 03:00 42 18 149/67 93 09/26/16 02:00 42 09/26/16 02:00 44 18 109/41 96 09/26/16 01:00 44 20 153/66 95 09/26/16 00:00 44 09/26/16 00:00 46 16 150/73 96 09/26/16 00:00 97.3 09/25/16 23:00 48 20 157/76 93 09/25/16 22:00 52 09/25/16 22:00 52 24 149/65 94 09/25/16 21:00 64 20 155/64 96 09/25/16 20:00 98.6 64 22 165/77 95 09/25/16 20:00 95 Nasal Cannula 3.00 09/25/16 20:00 64 09/25/16 19:27 95 Nasal Cannula 3.00 09/25/16 19:00 56 09/25/16 18:01 54 29 149/72 09/25/16 18:00 54 09/25/16 17:01 52 26 143/62 95 09/25/16 16:01 98.3 54 18 138/62 94 09/25/16 16:00 54 09/25/16 15:01 56 27 148/69 95 09/25/16 14:01 56 27 152/71 09/25/16 14:00 58 09/25/16 13:01 54 25 148/70 93 09/25/16 12:01 97.2 60 29 151/64 93 09/25/16 12:00 60 09/25/16 11:01 56 21 150/71 93 I/O 09/25/16 09/25/16 09/25/16 09/26/16 09/26/16 09/26/16 07:00 15:00 23:00 07:00 15:00 23:00 Intake Total 610 ml 965 ml 0 ml Output Total 600 ml 1100 ml 300 ml Balance 10 ml -135 ml -300 ml Intake Oral 60 ml 720 ml 0 ml IV Total 550 ml 245 ml 0 ml Output Urine Total 600 ml 1100 ml 300 ml Bladder Scan Volume Amount 13 ml # Voids 4 # Bowel Movements 0 2 1 Result Diagram: 09/26/16 0552 09/26/16 0552 Imaging Last Impressions Chest X-Ray 09/25/16 0000 Signed Impressions: Service Date/Time: Sunday, September 25, 2016 08:30 - CONCLUSION: Essentially stable pulmonary opacity infiltrates Evan Short MD Lower Extremity Ultrasound 09/21/16 0000 Signed Impressions: Service Date/Time: Wednesday, September 21, 2016 14:45 - CONCLUSION: No deep venous thrombosis in either lower extremity. Darian Roldan MD Chest CT 09/20/16 0000 Signed Impressions: Service Date/Time: Tuesday, September 20, 2016 12:18 - CONCLUSION: 1. Large areas of dense consolidation most characteristic of pneumonia. 2. Mild cardiomegaly. Osmel Chung MD Objective Remarks General: No acute distress. Sitting up in a chair. Heart: Regular rate and rhythm. No murmur. Lungs: Mild scattered wheeze. Breathing is nonlabored. Abdomen: Soft, nontender, nondistended. Extremities: 1+ bilateral lower extremity edema. Psych: Alert and oriented. HEENT: Scabbed lesions on lower lip and chin. Procedures None Urinary Catheter: No Vascular Central Line Catheter: No A/P Problem List: (1) Sepsis with multi-organ dysfunction ICD Code: A41.9 Status: Resolved (2) Septic shock ICD Code: A41.9 Status: Resolved (3) Adult respiratory distress syndrome ICD Code: J80 Status: Resolved (4) Acute respiratory failure with hypoxia ICD Code: J96.01 Status: Acute (5) Bilateral pneumonia ICD Code: J18.9 Status: Acute (6) Hypotension ICD Code: I95.9 Status: Acute (7) Lactic acid acidosis ICD Code: E87.2 Status: Resolved (8) Non-ST elevated myocardial infarction ICD Code: I21.4 Status: Acute (9) Elevated CPK ICD Code: R74.8 Status: Acute (10) Troponin level elevated ICD Code: R79.89 Status: Acute (11) Acute renal failure ICD Code: N17.9 Status: Acute (12) Diabetes ICD Code: E11.9 Status: Chronic (13) Hyperlipidemia ICD Code: E78.5 Status: Chronic Assessment and Plan 1. Acute hypoxic respiratory failure: Patient extubated and now tolerating oxygen per nasal cannula. Continue DuoNeb, steroids. Did not require BiPAP overnight. Appreciate pulmonology recommendations. 2. Septic shock: Resolved. Continue antibiotics. 3. Pneumonia: Possible aspiration. Continue antibiotics, oxygen. 4. Non-ST elevation [place]: Troponin mildly elevated. Appreciate cardiology recommendations. Chest pain likely due to pneumonia, but patient does have risk factors. Nuclear stress test negative. Continue aspirin, Lovenox. Beta donna and nitroglycerin had been on hold secondary to hypotension. Continue Coreg. 5. Mild acute protein calorie malnutrition: Encourage oral intake. 6. Acute kidney injury: Improving. 7. Diabetes mellitus type 2: Chronic. Monitor Accu-Cheks and cover with sliding scale insulin. Continue Levemir. Glucose was low this morning. 8. DVT prophylaxis: Lovenox. 9. GI prophylaxis: Pepcid. 10. Bacteremia: Blood cultures positive for strep pneumoniae. Repeat blood cultures are negative so far. Continue antibiotics. 11. Hypokalemia: Improved. Supplement per electrolyte protocol. 12. CODE STATUS: Full code. 13. Diarrhea: C. difficile negative. Discharge Planning Patient wants to be discharged so he can return home with his family, who are planning to leave town tomorrow. He will need home oxygen, which will be very difficult to arrange over the holiday weekend. Case management to assist with discharge planning. Problem Qualifiers (1) Bilateral pneumonia: Qualified Code: J18.9 - Pneumonia of both lungs due to infectious organism, unspecified part of lung (2) Hypotension: Qualified Code: I95.9 - Hypotension, unspecified hypotension type (3) Acute renal failure: Qualified Code: N17.9 - Acute renal failure, unspecified acute renal failure type (4) Diabetes: Qualified Code: E11.8 - Type 2 diabetes mellitus with complication, with long- term current use of insulin (5) Hyperlipidemia: Qualified Code: E78.5 - Hyperlipidemia, unspecified hyperlipidemia type Mt Mathew MD Sep 26, 2016 10:50
[2016-09-26] MEDS ORDERED: PHARMACY ORDERED LAB XX ONE (11:45)
--- NOTE | 2016-09-26 16:38 | HHI.PR ---
Subjective Remarks 70 YOWM from [place] with Bial pn and Pneumococcal bactremia Feels better On 3 LNC No fever Breathing better On Rocephin Objective Vital Signs Vital Signs Date Time Temp Pulse Resp B/P Pulse Ox O2 Delivery O2 Flow Rate FiO2 09/26/16 16:15 50 09/26/16 16:00 97.9 09/26/16 15:44 56 26 164/69 96 09/26/16 15:37 56 22 167/73 96 09/26/16 15:00 54 27 192/80 95 09/26/16 14:38 50 09/26/16 14:00 70 36 162/72 93 09/26/16 13:00 58 22 164/73 95 09/26/16 12:00 54 09/26/16 12:00 97.4 63 18 168/72 97 09/26/16 11:00 64 24 174/81 09/26/16 10:19 58 23 164/60 94 09/26/16 10:15 63 09/26/16 10:07 62 19 180/67 89 09/26/16 09:00 48 22 149/62 92 09/26/16 08:00 52 09/26/16 08:00 97.7 50 22 161/73 97 09/26/16 08:00 95 Nasal Cannula 3.00 09/26/16 07:43 96 Nasal Cannula 3.00 09/26/16 07:00 46 15 143/63 92 09/26/16 06:00 54 18 151/76 94 09/26/16 06:00 49 09/26/16 05:00 97.6 51 24 178/74 94 09/26/16 04:00 60 09/26/16 04:00 98.1 60 20 169/77 94 09/26/16 03:00 42 18 149/67 93 09/26/16 02:00 42 09/26/16 02:00 44 18 109/41 96 09/26/16 01:00 44 20 153/66 95 09/26/16 00:00 44 09/26/16 00:00 46 16 150/73 96 09/26/16 00:00 97.3 09/25/16 23:00 48 20 157/76 93 09/25/16 22:00 52 09/25/16 22:00 52 24 149/65 94 09/25/16 21:00 64 20 155/64 96 09/25/16 20:00 98.6 64 22 165/77 95 09/25/16 20:00 95 Nasal Cannula 3.00 09/25/16 20:00 64 09/25/16 19:27 95 Nasal Cannula 3.00 09/25/16 19:00 56 09/25/16 18:01 54 29 149/72 09/25/16 18:00 54 09/25/16 17:01 52 26 143/62 95 I/O 09/25/16 09/25/16 09/25/16 09/26/16 09/26/16 09/26/16 07:00 15:00 23:00 07:00 15:00 23:00 Intake Total 610 ml 965 ml 0 ml 650 ml Output Total 600 ml 1100 ml 300 ml 375 ml Balance 10 ml -135 ml -300 ml 650 ml -375 ml Intake Oral 60 ml 720 ml 0 ml 650 ml IV Total 550 ml 245 ml 0 ml Output Urine Total 600 ml 1100 ml 300 ml 375 ml Bladder Scan Volume Amount 13 ml # Voids 4 2 # Bowel Movements 0 2 1 1 Result Diagram: 09/26/16 0552 09/26/16 0552 Objective Remarks GENERAL: Elderly male mild sob SKIN: Warm and dry. HEAD: Normocephalic. EYES: No scleral icterus. No injection or drainage. NECK: Supple, trachea midline. No JVD or lymphadenopathy. CARDIOVASCULAR: Regular rate and rhythm without murmurs, gallops, or rubs. RESPIRATORY: Breath sounds equal bilaterally. No accessory muscle use. Rales at right bases GASTROINTESTINAL: Abdomen soft, non-tender, nondistended. MUSCULOSKELETAL: No cyanosis, or edema. BACK: Nontender without obvious deformity. No CVA tenderness. A/P Assessment and Plan Bilat Pneumonia Pneumococcal Bactremia Resp insuff HTN DM PLAN: Rocephin 2 gm q daily Aerosol nebs IV Solumedrol Monitor BS SQ Lovenox Supplement 02 to keep sat >90% Jem Lagunas MD Sep 26, 2016 16:38
[2016-09-26] MEDS: cefTRIAXone INJ 2,000 MG in SODIUM CHLORIDE 0.9% INJ 100 ML IV SCH (20:37)
[2016-09-26] MEDS: INSULIN DETEMIR 100 UNITS/ML VIAL SQ SCH (20:39)
[2016-09-27] VITALS (20 sets, daily range): BP systolic 149–188; BP diastolic 68–89; PULSE 47–84; RESP 16–32; TEMP 97.3–98.4; O2SAT 93–98
[2016-09-27] MEDS: INSULIN NovoLIN REGULAR SUPPLEMENTAL SCALE SQ SCH ×5 (03:00→21:00)
[2016-09-27] MEDS: CHLORHEXIDINE GLUCONATE 2 % 1 PACK (2 CLOTHS) TOP SCH (04:00)
[2016-09-27] MEDS: methylPREDNISolone SOD SUCC 40 MG/1 ML VIAL IV PUSH SCH ×3 (05:59→16:56)
[2016-09-27] MEDS: ACYCLOVIR 5% OINT 5 APPLIC/5 GM TUBE TOP SCH ×5 (05:59→21:18)
[2016-09-27] MEDS: ENOXAPARIN SODIUM 60 MG/0.6 ML SYRINGE SQ SCH ×2 (05:59→16:57)
[2016-09-27 06:04] LABS: BICARBONATE 28.5 MEQ/L (21.0-32.0)
[2016-09-27] MEDS: RESP: ALBUTEROL 2.5 MG/IPRATROPIUM 0.5 MG NEB (SCH) NEB ×2 (07:28→11:26)
[2016-09-27] MEDS: ASPIRIN EC 325 MG TABEC PO SCH (09:09)
[2016-09-27] MEDS: CARVEDILOL 3.125 MG TAB PO SCH ×2 (09:09→21:00)
[2016-09-27] MEDS: SODIUM CHLORIDE 0.9% FLUSH 5 ML FLUSH IV FLUSH SCH ×2 (09:09→21:00)
[2016-09-27] MEDS: FAMOTIDINE 20 MG TAB PO SCH ×2 (09:09→21:00)
--- NOTE | 2016-09-27 10:31 | HHI.PR ---
Subjective Remarks Follow-up respiratory failure, pneumonia. Patient feels a little better today. Still with some shortness of breath. Cough is improving. Objective Vitals Vital Signs Date Time Temp Pulse Resp B/P Pulse Ox O2 Delivery O2 Flow Rate FiO2 09/27/16 07:32 98 Nasal Cannula 3.00 09/27/16 06:00 53 09/27/16 06:00 52 20 179/83 98 09/27/16 05:00 48 18 155/81 96 09/27/16 04:00 52 18 170/73 98 09/27/16 04:00 52 09/27/16 03:30 94 50 09/27/16 03:00 53 16 149/72 98 09/27/16 02:00 52 16 159/74 96 09/27/16 02:00 47 09/27/16 01:00 48 18 166/68 96 09/27/16 00:00 98.0 60 20 179/78 97 09/27/16 00:00 60 09/26/16 22:00 50 21 166/78 98 09/26/16 22:00 51 09/26/16 21:00 55 18 174/82 97 09/26/16 20:00 97 Nasal Cannula 3.00 09/26/16 20:00 57 09/26/16 20:00 97.8 58 18 170/80 96 09/26/16 19:14 98 Nasal Cannula 3.00 09/26/16 19:00 60 18 178/76 96 09/26/16 18:32 60 09/26/16 18:00 68 31 171/78 96 09/26/16 17:00 58 27 182/74 97 09/26/16 16:45 54 20 179/86 97 09/26/16 16:15 50 09/26/16 16:00 97.9 09/26/16 15:44 56 26 164/69 96 09/26/16 15:37 56 22 167/73 96 09/26/16 15:00 54 27 192/80 95 09/26/16 14:38 50 09/26/16 14:00 70 36 162/72 93 09/26/16 13:00 58 22 164/73 95 09/26/16 12:00 54 09/26/16 12:00 97.4 63 18 168/72 97 09/26/16 11:00 64 24 174/81 I/O 09/26/16 09/26/16 09/26/16 09/27/16 09/27/16 09/27/16 07:00 15:00 23:00 07:00 15:00 23:00 Intake Total 0 ml 650 ml 668 ml 360 ml Output Total 300 ml 775 ml 400 ml Balance -300 ml 650 ml -107 ml -40 ml Intake Oral 0 ml 650 ml 450 ml 360 ml IV Total 0 ml 218 ml Output Urine Total 300 ml 775 ml 400 ml # Voids 2 # Bowel Movements 1 3 0 Result Diagram: 09/26/16 0552 09/27/16 0539 Imaging Last Impressions Myocardial Perfusion Scan Nuc Med 09/26/16 0000 Signed Impressions: Service Date/Time: Monday, September 26, 2016 09:22 - CONCLUSION: No definite reversible perfusion defects are identified to suggest stress-induced myocardial ischemia. RISK CATEGORY: Low (<1%% Annual Mortality Rate) Quentin Fuentes MD Chest X-Ray 09/25/16 0000 Signed Impressions: Service Date/Time: Sunday, September 25, 2016 08:30 - CONCLUSION: Essentially stable pulmonary opacity infiltrates Evan Short MD Lower Extremity Ultrasound 09/21/16 0000 Signed Impressions: Service Date/Time: Wednesday, September 21, 2016 14:45 - CONCLUSION: No deep venous thrombosis in either lower extremity. Darian Roldan MD Chest CT 09/20/16 0000 Signed Impressions: Service Date/Time: Tuesday, September 20, 2016 12:18 - CONCLUSION: 1. Large areas of dense consolidation most characteristic of pneumonia. 2. Mild cardiomegaly. Osmel Chung MD Objective Remarks General: No acute distress. Sitting up in a chair. Heart: Regular rate and rhythm. No murmur. Lungs: Mild scattered wheeze. Breathing is nonlabored. Abdomen: Soft, nontender, nondistended. Extremities: 1+ bilateral lower extremity edema. Psych: Alert and oriented. HEENT: Scabbed lesions on lower lip and chin are improving. Procedures None Urinary Catheter: No Vascular Central Line Catheter: No A/P Problem List: (1) Sepsis with multi-organ dysfunction ICD Code: A41.9 Status: Resolved (2) Septic shock ICD Code: A41.9 Status: Resolved (3) Adult respiratory distress syndrome ICD Code: J80 Status: Resolved (4) Acute respiratory failure with hypoxia ICD Code: J96.01 Status: Acute (5) Bilateral pneumonia ICD Code: J18.9 Status: Acute (6) Hypotension ICD Code: I95.9 Status: Resolved (7) Lactic acid acidosis ICD Code: E87.2 Status: Resolved (8) Non-ST elevated myocardial infarction ICD Code: I21.4 Status: Acute (9) Elevated CPK ICD Code: R74.8 Status: Acute (10) Troponin level elevated ICD Code: R79.89 Status: Acute (11) Acute renal failure ICD Code: N17.9 Status: Acute (12) Diabetes ICD Code: E11.9 Status: Chronic (13) Hyperlipidemia ICD Code: E78.5 Status: Chronic Assessment and Plan 1. Acute hypoxic respiratory failure: Patient extubated and now tolerating oxygen per nasal cannula. Continue DuoNeb, steroids. Appreciate pulmonology recommendations. Home oxygen walk test ordered. 2. Septic shock: Resolved. Continue antibiotics. 3. Pneumonia: Possible aspiration. Continue antibiotics, oxygen. 4. Non-ST elevation OK: Troponin mildly elevated. Appreciate cardiology recommendations. Chest pain likely due to pneumonia, but patient does have risk factors. Nuclear stress test negative. Continue aspirin, Lovenox. Beta donna and nitroglycerin had been on hold secondary to hypotension. Continue Coreg. 5. Mild acute protein calorie malnutrition: Encourage oral intake. 6. Acute kidney injury: Improving. 7. Diabetes mellitus type 2: Chronic. Monitor Accu-Cheks and cover with sliding scale insulin. Continue Levemir. 8. DVT prophylaxis: Lovenox. 9. GI prophylaxis: Pepcid. 10. Bacteremia: Blood cultures positive for strep pneumoniae. Repeat blood cultures are negative so far. Continue antibiotics. 11. Hypokalemia: Improved. Supplement per electrolyte protocol. 12. CODE STATUS: Full code. 13. Diarrhea: C. difficile negative. Discharge Planning Patient wants to be discharged so he can return home with his family, who are planning to leave town tomorrow. He will likely need home oxygen, which will be very difficult to arrange over the holiday weekend. Case management to assist with discharge planning. Problem Qualifiers (1) Bilateral pneumonia: Qualified Code: J18.9 - Pneumonia of both lungs due to infectious organism, unspecified part of lung (2) Hypotension: Qualified Code: I95.9 - Hypotension, unspecified hypotension type (3) Acute renal failure: Qualified Code: N17.9 - Acute renal failure, unspecified acute renal failure type (4) Diabetes: Qualified Code: E11.8 - Type 2 diabetes mellitus with complication, with long- term current use of insulin (5) Hyperlipidemia: Qualified Code: E78.5 - Hyperlipidemia, unspecified hyperlipidemia type Mt Mathew MD Sep 27, 2016 10:31
--- NOTE | 2016-09-27 14:23 | HHI.PR ---
Subjective Remarks 70 YOWM from [place] with Bial pn and Pneumococcal bactremia Feels better No fever Breathing better On Rocephin Weaned to 2LNC Ambulates Objective Vital Signs Vital Signs Date Time Temp Pulse Resp B/P Pulse Ox O2 Delivery O2 Flow Rate FiO2 09/27/16 12:01 72 32 170/76 93 09/27/16 11:01 62 22 165/80 95 09/27/16 10:01 68 23 156/77 94 09/27/16 10:00 96 Nasal Cannula 2.00 09/27/16 09:00 54 22 168/74 95 09/27/16 08:01 60 23 183/82 95 09/27/16 08:00 98.4 54 22 95 09/27/16 08:00 54 09/27/16 08:00 97 Nasal Cannula 3.00 09/27/16 07:32 98 Nasal Cannula 3.00 09/27/16 07:00 54 25 185/74 96 09/27/16 06:00 53 09/27/16 06:00 52 20 179/83 98 09/27/16 05:00 48 18 155/81 96 09/27/16 04:00 52 18 170/73 98 09/27/16 04:00 52 09/27/16 03:30 94 50 09/27/16 03:00 53 16 149/72 98 09/27/16 02:00 52 16 159/74 96 09/27/16 02:00 47 09/27/16 01:00 48 18 166/68 96 09/27/16 00:00 98.0 60 20 179/78 97 09/27/16 00:00 60 09/26/16 22:00 50 21 166/78 98 09/26/16 22:00 51 09/26/16 21:00 55 18 174/82 97 09/26/16 20:00 97 Nasal Cannula 3.00 09/26/16 20:00 57 09/26/16 20:00 97.8 58 18 170/80 96 09/26/16 19:14 98 Nasal Cannula 3.00 09/26/16 19:00 60 18 178/76 96 09/26/16 18:32 60 09/26/16 18:00 68 31 171/78 96 09/26/16 17:00 58 27 182/74 97 12/31/16 16:45 54 20 179/86 97 09/26/16 16:15 50 09/26/16 16:00 97.9 09/26/16 15:44 56 26 164/69 96 09/26/16 15:37 56 22 167/73 96 09/26/16 15:00 54 27 192/80 95 09/26/16 14:38 50 I/O 09/26/16 09/26/16 09/26/16 09/27/16 09/27/16 09/27/16 07:00 15:00 23:00 07:00 15:00 23:00 Intake Total 0 ml 650 ml 668 ml 360 ml Output Total 300 ml 775 ml 400 ml Balance -300 ml 650 ml -107 ml -40 ml Intake Oral 0 ml 650 ml 450 ml 360 ml IV Total 0 ml 218 ml Output Urine Total 300 ml 775 ml 400 ml # Voids 2 # Bowel Movements 1 3 0 Result Diagram: 09/26/16 0552 09/27/16 0539 Objective Remarks GENERAL: Elderly male mild sob SKIN: Warm and dry. HEAD: Normocephalic. EYES: No scleral icterus. No injection or drainage. NECK: Supple, trachea midline. No JVD or lymphadenopathy. CARDIOVASCULAR: Regular rate and rhythm without murmurs, gallops, or rubs. RESPIRATORY: Breath sounds equal bilaterally. No accessory muscle use. Rales at right bases GASTROINTESTINAL: Abdomen soft, non-tender, nondistended. MUSCULOSKELETAL: No cyanosis, or edema. BACK: Nontender without obvious deformity. No CVA tenderness. A/P Assessment and Plan Bilat Pneumonia Pneumococcal Bactremia Resp insuff HTN DM PLAN: Rocephin 2 gm q daily Aerosol nebs IV Solumedrol Monitor BS SQ Lovenox Supplement 02 to keep sat >90% Stable to tr to floor from pulm standpoint Jem Lagunas MD Sep 27, 2016 14:22
[2016-09-27] MEDS: RESP: ALBUTEROL 2.5 MG/IPRATROPIUM 0.5 MG NEB (PRN) INH ×2 (15:18→19:16)
[2016-09-27] MEDS: cefTRIAXone INJ 2,000 MG in SODIUM CHLORIDE 0.9% INJ 100 ML IV SCH (20:00)
[2016-09-27] MEDS: INSULIN DETEMIR 100 UNITS/ML VIAL SQ SCH (21:00)
[2016-09-28] MEDS: methylPREDNISolone SOD SUCC 40 MG/1 ML VIAL IV PUSH SCH ×3 (00:22→12:05)
[2016-09-28 00:28] VITALS: BP 150/74
[2016-09-28] MEDS: INSULIN NovoLIN REGULAR SUPPLEMENTAL SCALE SQ SCH ×3 (03:45→12:05)
[2016-09-28] MEDS: CHLORHEXIDINE GLUCONATE 2 % 1 PACK (2 CLOTHS) TOP SCH (03:50)
[2016-09-28 04:00] VITALS: BP 162/80; PULSE 61; RESP 20; TEMP 96.2; O2SAT 94
[2016-09-28] MEDS: ENOXAPARIN SODIUM 60 MG/0.6 ML SYRINGE SQ SCH (06:13)
[2016-09-28] MEDS: ACYCLOVIR 5% OINT 5 APPLIC/5 GM TUBE TOP SCH ×2 (06:15→09:39)
[2016-09-28 06:29] LABS: BICARBONATE 25.6 MEQ/L (21.0-32.0)
[2016-09-28 08:00] VITALS: BP 167/85; PULSE 67; RESP 20; TEMP 97.5; O2SAT 94
[2016-09-28] MEDS: ASPIRIN EC 325 MG TABEC PO SCH (09:39)
[2016-09-28] MEDS: FAMOTIDINE 20 MG TAB PO SCH (09:39)
[2016-09-28] MEDS: CARVEDILOL 3.125 MG TAB PO SCH (09:39)
[2016-09-28] MEDS: SODIUM CHLORIDE 0.9% FLUSH 5 ML FLUSH IV FLUSH SCH (09:39)
[2016-09-28 09:43] VITALS: PULSE 59
[2016-09-28] MEDS ORDERED: LEVA750T PO (11:47)
--- NOTE | 2016-09-28 11:58 | HHI.DS ---
Discharge Summary Admission Date Sep 20, 2016 at 12:01 Discharge Date: Sep 28, 2016 Admitting Diagnosis Severe sepsis secondary to bilateral pneumonia (1) Sepsis with multi-organ dysfunction ICD Code: A41.9 Diagnosis: Principal (2) Septic shock ICD Code: A41.9 Diagnosis: Principal (3) Adult respiratory distress syndrome ICD Code: J80 Diagnosis: Principal (4) Acute respiratory failure with hypoxia ICD Code: J96.01 Diagnosis: Principal (5) Bilateral pneumonia ICD Code: J18.9 Diagnosis: Principal (6) Hypotension ICD Code: I95.9 Diagnosis: Principal (7) Lactic acid acidosis ICD Code: E87.2 Diagnosis: Principal (8) Non-ST elevated myocardial infarction ICD Code: I21.4 Diagnosis: Principal (9) Elevated CPK ICD Code: R74.8 Diagnosis: Principal (10) Troponin level elevated ICD Code: R79.89 Diagnosis: Principal (11) Acute renal failure ICD Code: N17.9 Diagnosis: Principal (12) Diabetes ICD Code: E11.9 Diagnosis: Secondary (13) Hyperlipidemia ICD Code: E78.5 Diagnosis: Secondary (14) Streptococcus pneumoniae pneumonia ICD Code: J13 (15) Bacteremia due to Streptococcus pneumoniae ICD Code: R78.81 Procedures None Brief History - From Admission 70 year-old male with known history of hypertension, hyperlipidemia, diabetes who presented to the emergency department because of shortness of breath and dyspnea. Patient has had a rather plethora symptoms that started back starting last . At that time the patient did have some fever, chills and did not feel well. They're planning on coming down from [place]. Him and his did get in the car and drive down here from [place] on Wednesday morning. Wednesday afternoon and evening the patient did not feel well again. He had some diaphoresis, nausea and vomiting Wednesday night. They proceeded to continue to drive to [place] and they got here yesterday. Patient was still not feeling well. Had fever, cough, chills. This morning patient had significant shortness of breath, dyspnea, lethargy so they came to the hospital for evaluation. Upon presentation appears if the patient was in severe septic shock with multiorgan dysfunction in the emergency department patient was given 2 L of fluid bolus to maintain blood pressure. He does have respiratory failure with significant hypoxia. Patient was advanced on oxygenation to now he is on BiPAP for respiratory support. It was indicated by the ER physician that they recommended him to be intubated, however he preferred not to be intubated at that time. Laboratory studies to indicate significant lactic acid acidosis, acute renal failure, severe bandemia, elevated cardiac enzymes. ER physician did contact critical care physician recommended admission. ER physician to pursue a CT scan after she obtained admission status. It does show significant pneumonia bilaterally. Mainly right middle lobe. It appears to be very dense consolidation. Upon evaluating the patient personally, patient is still rather tachypneic and respiratory rate 35-40. Tidal volume on BiPAP was anywhere from 300-450. I notify him of how sick he is. That he would probably benefit from oral intubation. Patient is open to it at this time to be proactive rather than reactive. CBC/BMP: 09/26/16 0552 09/28/16 0530 Significant Findings Laboratory Tests Test 09/26/16 09/27/16 09/28/16 05:52 05:39 05:30 Red Blood Count 3.44 MIL/MM3 (4.50-5.90) Hemoglobin 10.9 GM/DL (13.0-17.0) Hematocrit 33.6 % (39.0-51.0) Platelet Count 82 TH/MM3 (150-450) Neutrophils (%) (Auto) 89.4 % (16.0-70.0) Lymphocytes (%) (Auto) 6.7 % (9.0-44.0) Lymphocytes # (Auto) 0.5 TH/MM3 (1.0-4.8) Platelet Estimate LOW (NORMAL) Sodium Level 149 MEQ/L 146 MEQ/L (136-145) (136-145) Chloride Level 112 MEQ/L 110 MEQ/L (98-107) (98-107) Blood Urea Nitrogen 28 MG/DL (7-18) 28 MG/DL (7-18) 26 MG/DL (7-18) Random Glucose 151 MG/DL 116 MG/DL 146 MG/DL (74-106) (74-106) (74-106) Calcium Level 8.2 MG/DL 8.2 MG/DL 8.3 MG/DL (8.5-10.1) (8.5-10.1) (8.5-10.1) Estimat Glomerular Filtration 87 ML/MIN (>89) Rate Imaging Last Impressions Myocardial Perfusion Scan Nuc Med 09/26/16 0000 Signed Impressions: Service Date/Time: Monday, September 26, 2016 09:22 - CONCLUSION: No definite reversible perfusion defects are identified to suggest stress-induced myocardial ischemia. RISK CATEGORY: Low (<1%% Annual Mortality Rate) Quentin Fuentes MD Chest X-Ray 09/25/16 0000 Signed Impressions: Service Date/Time: Sunday, September 25, 2016 08:30 - CONCLUSION: Essentially stable pulmonary opacity infiltrates Evan Short MD Lower Extremity Ultrasound 09/21/16 0000 Signed Impressions: Service Date/Time: Wednesday, September 21, 2016 14:45 - CONCLUSION: No deep venous thrombosis in either lower extremity. Darian Roldan MD Chest CT 09/20/16 0000 Signed Impressions: Service Date/Time: Tuesday, September 20, 2016 12:18 - CONCLUSION: 1. Large areas of dense consolidation most characteristic of pneumonia. 2. Mild cardiomegaly. Osmel Chung MD PE at Discharge General: No acute distress. Sitting up in a chair. Heart: Regular rate and rhythm. No murmur. Lungs: Lungs clear to auscultation bilaterally with no wheezing. Abdomen: Soft, nontender, nondistended. Extremities: 1+ bilateral lower extremity edema. Psych: Alert and oriented. HEENT: Scabbed lesions on lower lip and chin are improving. Pt update on day of discharge Patient is doing well today. His family is in the room. Patient like to go home. They plan to drive back to [place] starting tomorrow. The patient denies any dyspnea. The patient ambulated with physical therapy today. Sats were good on room air. Patient agrees to follow-up with his primary care physician in [place] this week. Hospital Course Patient was admitted to the ICU and underwent treatment with broad-spectrum antibiotics, IV fluid resuscitation, and was placed on BiPAP for respiratory support initially. He required Levophed and vasopressin for blood pressure support. The patient was intubated on September 20 and extubated on September 22. His respiratory status improved. His blood cultures did grow out Streptococcus pneumoniae. Repeat blood cultures were negative. Due to mild elevation of troponin cardiology was consulted. A nuclear stress test was negative and it was thought that if the elevation of troponins was likely secondary to the shock. The patient also had thrombocytopenia likely related to the sepsis, platelets are stable 82,000. He was gradually weaned off oxygen and today is ambulating on room air in no distress. The patient will complete a total of 14 weeks of antibiotics for the strep pneumo pneumonia and bacteremia and will complete 7 more days of by mouth Levaquin per sensitivities. He is cleared for discharge home today and his family will be driving him back to [place]. The patient is to follow-up with his primary care physician later this week. Pt Condition on Discharge: Stable Discharge Disposition: Discharge Home Discharge Time: > 30 minutes Discharge Instructions DIET: Follow Instructions for: Diabetic Diet Activities you can perform: Regular-No Restrictions New Medications: Levofloxacin (Levaquin) 750 Mg Tab 750 MG PO DAILY Infection #7 Ref 0 TAB Continued Medications: Ezetimibe-Simvastatin (Vytorin) 10-40 Mg Tab 1 TAB PO HS #30 Ref 0 TAB Ferrous Sulfate (Ferrous Sulfate) 325 Mg Tab 325 MG PO DAILY Nutritional Supplement #30 Ref 0 TAB Glimepiride (Glimepiride) 4 Mg Tab 4 MG PO BIDAC Blood Sugar Management #60 Ref 0 TAB Insulin Detemir Inj (Levemir Flextouch Pen Inj) 300 unit/3 ML Pen 1 UNITS SQ DIRECTED Blood Sugar Management Ref 0 PEN Pioglitazone (Actos) 15 Mg Tab 15 MG PO DAILY Blood Sugar Management #30 Ref 0 TAB Ramipril (Ramipril) 10 Mg Cap 10 MG PO DAILY #30 Ref 0 CAP Sitagliptin (Januvia) 100 Mg Tab 100 MG PO DAILY Blood Sugar Management #30 Ref 0 TAB Sujata Lancaster MD Sep 28, 2016 11:58
[2016-09-28 12:00] VITALS: BP 167/72; PULSE 65; RESP 20; TEMP 96.8; O2SAT 96
== END 2016-09-28 14:11 | disposition home or self-care (01) | DRG 871 ==
LOC: PHED 09:50 → PHEDA 12:01 → PHICU 16:24 → PH3B 09-27 22:06
PROVIDERS: ADMIT Family Medicine; ATTEND Family Medicine
PROC: 0BH17EZ Insertion of Endotracheal Airway into Trachea, Via Natural or Artificial Opening (ICD-10-PCS; principal; 2016-09-20)
PROC: 5A1945Z Respiratory Ventilation, 24-96 Consecutive Hours (ICD-10-PCS; 2016-09-20)
DX: A41.9 Sepsis, unspecified organism (principal); R65.21 Severe sepsis with septic shock; J96.01 Acute respiratory failure with hypoxia; J69.0 Pneumonitis due to inhalation of food and vomit; I21.4 Non-ST elevation (NSTEMI) myocardial infarction; D69.59 Other secondary thrombocytopenia; J13 Pneumonia due to Streptococcus pneumoniae; E87.2 Acidosis; E46 Unspecified protein-calorie malnutrition; N17.9 Acute kidney failure, unspecified; E11.8 Type 2 diabetes mellitus with unspecified complications; E78.5 Hyperlipidemia, unspecified; E87.6 Hypokalemia; G47.30 Sleep apnea, unspecified; I11.9 Hypertensive heart disease without heart failure; I49.9 Cardiac arrhythmia, unspecified; Z79.4 Long term (current) use of insulin
CPT/HCPCS: 31500; 36600; 71010; 71250; 78452; 80048; 80053; 80061; 82533; 82550; 82552; 82805; 82948; 83605; 83735; 83880; 84100; 84132; 84155; 84439; 84443; 84481; 84484; 85007; 85025; 85027; 85610; 85730; 87040; 87070; 87186; 87205; 87449; 87493; 87641; 87804; 93005; 93017; 93306; 93970; 94002; 94003; 94150; 94620; 94640; 94664; 94667; 94668; 96365; 96367; A9502; J0330; J0456; J0696; J1170; J1644; J1650; J1815; J1940; J2060; J2250; J2543; J2785; J2920; J2930; J3010; J3370; J3480; J7030; J7040; J7050; P9045